=== PATIENT | female | born 1995 | race Asian ===

== ENCOUNTER 2020-04-04 12:06 | Outpatient (REF) | payer OTHER, SELFPAY | END 2020-04-04 12:07 | disposition home or self-care (01) | LOC: HO.LAB 12:06 | PROVIDERS: Visit Provider Internal Medicine | DX: Z20.822 Contact with and (suspected) exposure to COVID-19 (principal) | CPT/HCPCS: 36415; C9803; U0003; U0005 ==

== ENCOUNTER 2020-04-08 16:38 | Outpatient (REF) | payer OTHER, SELFPAY | END 2020-04-08 16:39 | disposition home or self-care (01) | LOC: HO.LAB 16:38 | PROVIDERS: Visit Provider Internal Medicine | DX: Z20.822 Contact with and (suspected) exposure to COVID-19 (principal) | CPT/HCPCS: 36415; C9803; U0003; U0005 ==

== ENCOUNTER 2020-04-10 07:10 | Outpatient (REF) | payer OTHER, SELFPAY | END 2020-04-10 07:11 | disposition home or self-care (01) | LOC: HO.LAB 07:10 | PROVIDERS: Visit Provider Internal Medicine | DX: Z20.822 Contact with and (suspected) exposure to COVID-19 (principal) | CPT/HCPCS: 36415; C9803; U0003; U0005 ==

== ENCOUNTER 2020-05-03 10:55 | Outpatient (REF) | payer OTHER, SELFPAY | END 2020-05-03 10:56 | disposition home or self-care (01) | LOC: HO.LAB 10:55 | PROVIDERS: Visit Provider Internal Medicine | DX: Z20.822 Contact with and (suspected) exposure to COVID-19 (principal) | CPT/HCPCS: 36415; C9803; U0003; U0005 ==

== ENCOUNTER 2020-07-18 14:15 | Outpatient (REF) | payer OTHER, SELFPAY ==
[2020-07-18 14:47] LABS: COVID-19 Test Negative (Negative)
== END 2020-07-18 14:16 | disposition home or self-care (01) ==
LOC: HO.LAB 14:15
PROVIDERS: Visit Provider Internal Medicine
DX: Z20.822 Contact with and (suspected) exposure to COVID-19 (principal)
CPT/HCPCS: 36415; 87635; C9803

== ENCOUNTER 2020-10-11 14:04 | Outpatient (REF) | payer OTHER, SELFPAY ==
[2020-10-11 15:15] LABS: COVID-19 Test Negative (Negative)
== END 2020-10-11 14:05 | disposition home or self-care (01) ==
LOC: HO.LAB 14:04
PROVIDERS: Visit Provider Internal Medicine
DX: Z20.822 Contact with and (suspected) exposure to COVID-19 (principal)
CPT/HCPCS: 36415; 87635; C9803

== ENCOUNTER 2021-06-20 03:17 | Emergency (ER) | payer OTHER, SELFPAY ==
[2021-06-20] VITALS (21 sets, daily range): BP systolic 98–140; BP diastolic 53–90; PULSE 57–97; RESP 14–20; TEMP 36.2–37.1; O2SAT 96–100; BMI 29.2
--- NOTE | ~2021-06-20 | CT_ITS ---
EXAMINATION: CT ABDOMEN AND PELVIS WITH CONTRAST CLINICAL INFORMATION: Epigastric pain radiating to the back COMPARISON: None TECHNIQUE: Multidetector volumetric images were obtained from the superior aspect of the liver through the pubic symphysis following administration 85 mL of Omnipaque 350 intravenous contrast. Sagittal and coronal reformatted images were obtained on the technologist's workstation. Oral contrast: No This CT examination was performed using dose optimization techniques as appropriate, variously including the following: *Automated exposure control *Adjustment of mA and/or kV according to patient size (this includes techniques or standardized protocols for targeted exams where dose is matched to indication/reason for exam; i.e. extremities or head) *Use of iterative reconstruction technique DLP: 703 mGy-cm FINDINGS: LUNG BASES: The visualized lung bases are unremarkable. LIVER, GALLBLADDER, AND BILIARY TREE: The liver is normal in size, shape, and attenuation. No focal hepatic lesion or biliary ductal dilatation is present. Somewhat distended gallbladder. No wall thickening seen. High attenuation seen in the region of the cystic duct, concerning for stones. This is seen on series 7 image 31. Normal caliber common bile duct. PANCREAS: Unremarkable. SPLEEN: Unremarkable. ADRENAL GLANDS: Unremarkable. KIDNEYS AND URETERS: The kidneys are normal in size, shape, and attenuation. No hydronephrosis, hydroureter, or calculi seen. No perinephric stranding. BLADDER: Unremarkable. GASTROINTESTINAL TRACT: The small and large bowel are unremarkable. The appendix is unremarkable. ABDOMINAL WALL: No significant hernia is appreciated. LYMPH NODES: Normal. VASCULAR: Unremarkable. PELVIC VISCERA: The uterus and adnexa are unremarkable. OSSEOUS STRUCTURES: Unremarkable. CT/CT abdomen pelvis w con IMPRESSION: Somewhat distended gallbladder. Suspect stones in the cystic duct. Consider correlation with ultrasound. Otherwise no acute finding in the abdomen or pelvis. Fleischner guidelines were followed.
--- NOTE | ~2021-06-20 | US_ITS ---
EXAMINATION: US ABDOMEN LIMITED CLINICAL INFORMATION: Right upper quadrant pain. COMPARISON: 06/20/2021 TECHNIQUE: Real-time imaging of the right upper quadrant abdominal viscera. FINDINGS: PANCREAS: Normal. LIVER: Normal. The liver is normal in size. The liver contour is normal. Parenchymal echogenicity is normal. No focal hepatic lesion. There is no intrahepatic biliary duct dilatation seen. GALLBLADDER: Patient is reportedly tender over the gallbladder. The gallbladder wall is mildly prominent 3.5 mm. No pericholecystic fluid. Ultrasound confirms the presence of a subtle tiny stone within the cystic duct. No choledocholithiasis. COMMON BILE DUCT: Normal in caliber measuring 0.4 cm in diameter. RIGHT KIDNEY: Normal. No hydronephrosis. No renal calculi or focal parenchymal lesions. The kidney measures 9.7 cm in maximum dimension. FREE FLUID: None. US/US abdomen limited IMPRESSION: Stone seen within the cystic duct. No choledocholithiasis. The gallbladder wall is minimally thickened which is nonspecific but may be indicative of early cholecystitis. Correlate clinically.
[2021-06-20 03:40] LABS: Appearance Urine CLEAR; Color Urine STRAW; Glucose Urine UA NEG (NEG); Leukocyte Esterase Urine NEG (NEG); Nitrite Urine NEG (NEG); PH 5.5 (5.0-8.0); Urine Blood NEG (NEG); Urine Ketones NEG (NEG); Urine Protein NEG (NEG-TRACE)
[2021-06-20 03:42] LABS: UPreg QC Valid YES; Urine Pregnancy NEGATIVE (NEGATIVE)
[2021-06-20 03:50] LABS: Bacteria Urine TRACE /LPF; RBC Urine 0 /HPF (0); Squamous Epithelial Cell Urine 2+ /LPF; WBC Urine 0-2 /HPF (0-4)
[2021-06-20 03:52] LABS: Amphetamine Screen Urine Not Detected (Not Detect); Barbiturates, Urine Not Detected (Not Detect); Benzodiazepines Screen Urine Not Detected (Not Detect); Cannabinoid Screen Urine Not Detected (Not Detect); Cocaine Screen Urine Not Detected (Not Detect); Fentanyl, urine Not Detected (Not Detect); Opiate Screen Urine Not Detected (Not Detect); Phencyclidine Screen Urine Not Detected (Not Detect)
[2021-06-20 03:55] LABS: MANUAL DIFF FLAG NO
[2021-06-20 03:56] LABS: Basophils Absolute Auto 0.1 X10*3/uL (0.0-0.2); Basophils Percent Auto 0.7 % (0-2); Eosinophils Absolute Auto 0.2 X10*3/uL (0.0-0.4); Eosinophils Percent Auto 1.6 % (0-4); Hematocrit 43.9 % (37.0-47.0); Hemoglobin 14.3 g/dl (12.0-16.0); Imm Gran Abs Auto 0.02 X10*3/uL (0.00-0.03); Imm Gran Pct Auto 0.2 % (0.0-0.4); Lymphocytes Absolute Auto 4.9 X10*3/uL (1.2-4.9); Mean Corpuscular HGB Conc 32.6 g/dl (31.0-35.0); Mean Corpuscular Hemoglobin 27.7 pg (27.0-33.0); Mean Corpuscular Volume 85.1 fL (80.0-98.0); Mean Platelet Volume 9.4 fL (9.4-12.3); Monocytes Absolute Auto 0.5 X10*3/uL (0.1-1.2); Monocytes Percent Auto 4.7 % (2-11); Neutrophils Percent Auto 46.8 % (45-73); Platelet Count 390 X10*3/uL (160-400); Red Blood Count 5.16 X10*6/uL (4.20-5.50); Red Cell Distribution Width 12.6 % (11.0-16.0); White Blood Count 10.6 X10*3/uL (4.8-10.8)
--- NOTE | 2021-06-20 04:21 | ED.ABDPAIN ---
HPI - Abdominal Pain General Chief Complaint: Abdominal Pain Stated Complaint: abdominal pain Time Seen by Provider: 06/20/21 04:10 Source: patient Mode of arrival: ambulatory Limitations: no limitations History of Present Illness HPI narrative: Patient comes to the emergency room complaining of severe epigastric pain radiating towards the back. Patient states that the pain started yesterday but throughout the night the pain became much worse. Patient denies vomiting or diarrhea, complaining of urinary frequency, no hematuria or dysuria. No fever chills Related Data Allergies Allergy/AdvReac Type Severity Reaction Status Date / Time procaine [From NOVOCAIN] Allergy Mild HIVES FROM Unverified 11/16/19 16:12 DENTAL NOVOCAIN amoxicillin [AMOXICILLIN] Allergy Unknown HIVES Unverified 11/16/19 16:12 Penicillins [PCN] Allergy Unknown HIVES Unverified 11/16/19 16:12 fish Allergy Unknown anaphylaxis Uncoded 08/30/19 00:00 novacaine Allergy Unknown hives Uncoded 08/30/19 00:00 SHELLFISH Allergy Unknown HIVES Uncoded 11/16/19 16:12 shellfish Allergy Unknown anaphylaxis Uncoded 08/30/19 00:00 Review of Systems Review of Systems Constitutional : No Weight loss, No Fever, No Chills, No Night Sweats, No Fatigue, No Malaise ENT/Mouth : No Hearing loss, No Ear Pain, No Nasal Congestion, No Sinus Pain, No Hoarseness, No sore throat, No Rhinorrhea, No Swallowing Difficulty Eyes: No Eye Pain, No Swelling, No Redness, No Foreign Body, No Discharge, No Vision Changes Cardiovascular : No Chest Pain, No SOB, No Dyspnea on Exertion, No Orthopnea, No Edema, No Palpitations Respiratory : No Cough, No Sputum, No Wheezing, No Smoke Exposure, No Dyspnea Gastrointestinal : Complaining of Nausea, No Vomiting, No Diarrhea, No Constipation, complaining of epigastric pain radiating towards the back, constant sharp pain 10/10 Genitourinary : no irregular bleeding, No Dysuria, No Urinary Frequency, No Hematuria, No Urinary Incontinence, No Urgency, No Flank Pain, No Urinary Flow Changes, No Hesitancy Musculoskeletal : No joint pain, No Myalgias, No Joint Swelling Skin : No Skin Lesions, No rash Neuro : No Weakness, No Numbness, No Paresthesias, No Loss of Consciousness, No Dizziness, No Headache Psych : No Anxiety/Panic, No Depression, No SI/HI/AH/VH, No Social Issues, Heme/Lymph: No Bruising, No Bleeding,No Lymphadenopathy Endocrine : No Polyuria, No Polydipsia, No Temperature Intolerance PMFSH Social History Social History Advance Directives: No Physical Exam ED Vital Signs: Vital Signs - 24 hr 06/20/21 03:19 06/20/21 03:54 06/20/21 05:31 Temperature 98.5 F 98.7 F Pulse Rate 82 82 74 Respiratory Rate 20 16 16 Blood Pressure 120/63 123/76 123/74 Pulse Oximetry 97 99 99 BMI result Body Mass Index 29.2 Const Other: Appearance: Alert. Oriented X3. Patient very agitated, throwing herself on the floor, getting up and walking around her bed, and throwing herself back in bed, screaming Eyes: Pupils equal, round and reactive to light. ENT: Pharynx normal. Neck: Normal inspection. Neck supple. No lymph nodes noted. No crepitus CVS: Normal heart rate and rhythm. Pulses normal. Normal S1 and S2 Respiratory: No respiratory distress. Breath sounds normal. No Wheezing. No rales Abdomen: Soft , tender to palpation in epigastric area Skin: Skin warm and dry. Normal skin color. Normal skin turgor. Extremities: No lower extremity edema. No Lacerations. No Rash Neuro: Oriented X 3. No motor deficit. No sensory deficit. Moving all extremities. No slurred speech. CN 2 through 12 grossly intact Psych: Very anxious, agitated, screaming, throwing herself on the ground, please see above Course Course Course Narrative: Patient's labs and imaging pending. Patient receiving IV Toradol and Zofran Overall, patient states that she is feeling much better, still having significant pain, but not as bad as when she initially arrived to the emergency room. 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 I discussed using IV contrast with Dr. Kolb from radiology. Nowadays, seafood allergy has no correlation with allergies to IV contrast. I discussed this with the patient. I discussed that we can either try doing the CT scan without contrast, but we may not get enough information, versus doing the IV contrast CT scan, and premedicating her. Patient states that she prefers to be premedicated and having the CT scan done with contrast. Patient is receiving IV diphenhydramine, famotidine, Solu-Medrol. Patient tolerated well the CT scan with contrast. CT scan shows somewhat distended gallbladder. Ultrasound has been ordered. please f/u ultrasound. Sign out given to Dr. Zambrano [facility] - Abdominal Pain Lab Data Result diagrams: 06/20/21 03:51 06/20/21 04:13 Labs: Lab Results 06/20/21 06/20/21 06/20/21 Range/Units 03:33 03:33 03:33 WBC (4.8-10.8) X10*3/uL RBC (4.20-5.50) X10*6/uL Hgb (12.0-16.0) g/dl Hct (37.0-47.0) % MCV (80.0-98.0) fL MCH (27.0-33.0) pg MCHC (31.0-35.0) g/dl RDW (11.0-16.0) % Plt Count (160-400) X10*3/uL MPV (9.4-12.3) fL Immature Gran % (Auto) (0.0-0.4) % Neut % (Auto) (45-73) % Lymph % (Auto) (20-40) % [place] % (Auto) (2-11) % Eos % (Auto) (0-4) % Baso % (Auto) (0-2) % Lymph # (Auto) (1.2-4.9) X10*3/uL [place] # (Auto) (0.1-1.2) X10*3/uL Eos # (Auto) (0.0-0.4) X10*3/uL Baso # (Auto) (0.0-0.2) X10*3/uL Abs Immat Gran (auto) (0.00-0.03) X10*3/uL Absolute Neuts (auto) (2.0-8.3) x10*3/uL Absolute Nucleated RBC (0.0-0.012) X10*3/uL Nucleated RBC % (auto) (0.0-0.2) /100WBC Sodium (135-145) mmol/L Potassium (3.3-5.1) mmol/L Chloride (96-108) mmol/L Carbon Dioxide (22-29) mmol/L Anion Gap (12-20) BUN (9-16) mg/dL Creatinine (0.5-1.4) mg/dL Estim Creat Clear Calc Estimated GFR Random Glucose (60-115) mg/dL Calcium (8.4-10.2) mg/dL Total Bilirubin (0.0-1.0) mg/dL AST (5-31) U/L ALT (0-31) U/L Alkaline Phosphatase (39-117) U/L Total Protein (6.5-8.0) g/dL Albumin (3.5-5.0) g/dL Urine Color STRAW Urine Appearance CLEAR Urine pH 5.5 (5.0-8.0) Ur Specific [place] 1.010 (1.005-1.025) Urine Protein NEG (NEG-TRACE) MG/DL Urine Glucose (UA) NEG (NEG) MG/DL Urine Ketones NEG (NEG) MG/DL Urine Blood NEG (NEG) Urine Nitrite NEG (NEG) Ur Leukocyte Esterase NEG (NEG) Urine RBC 0 (0) /HPF Urine WBC 0-2 (0-4) /HPF Ur Squamous Epith Cells 2+ /LPF Urine Bacteria TRACE /LPF Urine Test NEGATIVE (NEGATIVE) Urine Opiates Screen Not Detected (Not Detect) Urine Fentanyl Screen Not Detected (Not Detect) Ur Barbiturates Screen Not Detected (Not Detect) Ur Phencyclidine Scrn Not Detected (Not Detect) Ur Amphetamines Screen Not Detected (Not Detect) U Benzodiazepines Scrn Not Detected (Not Detect) Urine Cocaine Screen Not Detected (Not Detect) U Marijuana (THC) Screen Not Detected (Not Detect) 06/20/21 06/20/21 Range/Units 03:51 04:13 WBC 10.6 (4.8-10.8) X10*3/uL RBC 5.16 (4.20-5.50) X10*6/uL Hgb 14.3 (12.0-16.0) g/dl Hct 43.9 (37.0-47.0) % MCV 85.1 (80.0-98.0) fL MCH 27.7 (27.0-33.0) pg MCHC 32.6 (31.0-35.0) g/dl RDW 12.6 (11.0-16.0) % Plt Count 390 (160-400) X10*3/uL MPV 9.4 (9.4-12.3) fL Immature Gran % (Auto) 0.2 (0.0-0.4) % Neut % (Auto) 46.8 (45-73) % Lymph % (Auto) 46.0 H (20-40) % [place] % (Auto) 4.7 (2-11) % Eos % (Auto) 1.6 (0-4) % Baso % (Auto) 0.7 (0-2) % Lymph # (Auto) 4.9 (1.2-4.9) X10*3/uL [place] # (Auto) 0.5 (0.1-1.2) X10*3/uL Eos # (Auto) 0.2 (0.0-0.4) X10*3/uL Baso # (Auto) 0.1 (0.0-0.2) X10*3/uL Abs Immat Gran (auto) 0.02 (0.00-0.03) X10*3/uL Absolute Neuts (auto) 5.0 (2.0-8.3) x10*3/uL Absolute Nucleated RBC 0.000 (0.0-0.012) X10*3/uL Nucleated RBC % (auto) 0.0 (0.0-0.2) /100WBC Sodium 138 (135-145) mmol/L Potassium 4.3 (3.3-5.1) mmol/L Chloride 107 (96-108) mmol/L Carbon Dioxide 22 (22-29) mmol/L Anion Gap 13 (12-20) BUN 10 (9-16) mg/dL Creatinine 0.70 (0.5-1.4) mg/dL Estim Creat Clear Calc 111.6 Estimated GFR > 60 Random Glucose 115 (60-115) mg/dL Calcium 10.7 H (8.4-10.2) mg/dL Total Bilirubin 0.4 (0.0-1.0) mg/dL AST 15 (5-31) U/L ALT 14 (0-31) U/L Alkaline Phosphatase 76 (39-117) U/L Total Protein 7.3 (6.5-8.0) g/dL Albumin 4.0 (3.5-5.0) g/dL Urine Color Urine Appearance Urine pH (5.0-8.0) Ur Specific [place] (1.005-1.025) Urine Protein (NEG-TRACE) MG/DL Urine Glucose (UA) (NEG) MG/DL Urine Ketones (NEG) MG/DL Urine Blood (NEG) Urine Nitrite (NEG) Ur Leukocyte Esterase (NEG) Urine RBC (0) /HPF Urine WBC (0-4) /HPF Ur Squamous Epith Cells /LPF Urine Bacteria /LPF Urine Test (NEGATIVE) Urine Opiates Screen (Not Detect) Urine Fentanyl Screen (Not Detect) Ur Barbiturates Screen (Not Detect) Ur Phencyclidine Scrn (Not Detect) Ur Amphetamines Screen (Not Detect) U Benzodiazepines Scrn (Not Detect) Urine Cocaine Screen (Not Detect) U Marijuana (THC) Screen (Not Detect) Imaging Data CT scan - abdomen: Radiologist's impression: INDINGS: LUNG BASES: The visualized lung bases are unremarkable.? LIVER, GALLBLADDER, AND BILIARY TREE: The liver is normal in size, shape, and attenuation. No focal hepatic lesion or biliary ductal dilatation is present. Somewhat distended gallbladder. No wall thickening seen. High attenuation seen in the region of the cystic duct, concerning for stones. This is seen on series 7 image 31. Normal caliber common bile duct.? PANCREAS: Unremarkable.? SPLEEN: Unremarkable.? ADRENAL GLANDS: Unremarkable.? KIDNEYS AND URETERS: The kidneys are normal in size, shape, and attenuation. No hydronephrosis, hydroureter, or calculi seen. No perinephric stranding. ? BLADDER: Unremarkable.? GASTROINTESTINAL TRACT: The small and large bowel are unremarkable. The appendix is unremarkable.? ABDOMINAL WALL: No significant hernia is appreciated.? LYMPH NODES: Normal. VASCULAR: Unremarkable. PELVIC VISCERA: The uterus and adnexa are unremarkable.? OSSEOUS STRUCTURES: Unremarkable.? CT/CT abdomen pelvis w con IMPRESSION: Somewhat distended gallbladder. Suspect stones in the cystic duct. Consider correlation with ultrasound. Otherwise no acute finding in the abdomen or pelvis.? ? Fleischner guidelines were followed. Discharge Plan Discharge Clinical Impression: Abdominal pain Patient Disposition: Still a Patient
[2021-06-20] MEDS: Ketorolac Tromethamine 30 MG/ML VIAL IVPUSH (04:32)
[2021-06-20] MEDS: ondansetron HCL 4 MG/2 ML VIAL IVPUSH ×2 (04:33→14:15)
[2021-06-20 04:40] LABS: Alanine Aminotransferase 14 U/L (0-31); Alkaline Phosphatase 76 U/L (39-117); Anion Gap 13 (12-20); Aspartate Amino Transferase 15 U/L (5-31); Bilirubin Total 0.4 mg/dL (0.0-1.0); Blood Urea Nitrogen 10 mg/dL (9-16); Calcium 10.7 mg/dL (8.4-10.2); Carbon Dioxide 22 mmol/L (22-29); Chloride 107 mmol/L (96-108); Creatinine Clr Calc Pharmacy 111.6; Estimated Glomerular Filt Rate > 60; Glucose Random 115 mg/dL (60-115); Potassium 4.3 mmol/L (3.3-5.1); Sodium 138 mmol/L (135-145); Total Protein 7.3 g/dL (6.5-8.0)
[2021-06-20] MEDS: Famotidine/PF 20 MG/2 ML VIAL IVPUSH (05:01)
[2021-06-20] MEDS: diphenhydrAMINE HCL 50 MG/ML VIAL IVPUSH (05:01)
[2021-06-20] MEDS: methylPREDNISolone Sod Succ 125 MG/2 ML VIAL IVPUSH (05:01)
[2021-06-20] MEDS: iohexoL 350 MG/ML 100 ML INFUS..BTL 85 ML IV (05:16)
--- NOTE | 2021-06-20 07:25 | PC.NURSE ---
care assumed for patient at this time. pt resting in bed comfortably no obvious distress. plan for ultrasound this am.
[2021-06-20 09:16] LABS: Lipase 16 U/L (8-78)
--- NOTE | 2021-06-20 09:37 | PC.NURSE ---
plan for pt to talk to surgery
--- NOTE | 2021-06-20 10:02 | P.HPGS_ITS ---
History of Present Illness History of Present Illness Date of Service: 06/20/21 <Claribel Drew PA-C - Last Filed: 06/20/21 10:17> 06/20/21 <Gallo Tellez MD - Last Filed: 06/20/21 14:11> Chief complaint: abdominal pain <Claribel Drew PA-C - Last Filed: 06/20/21 10:17> Narrative: Sanna Hernandez is a 26 year old healthy female who presented to the ED with complaints of upper abdominal pain. The pain began yesterday afternoon after eating but worsened throughout the night. The pain is located in the epigastric/RUQ area and radiates to the back. She reports having frequent episodes about an hour following meals for the past 3-4 weeks. They usually go away on their own however this current episode was severe and persisted. She reports nausea and chills with this episode. She denies fever, vomiting, changes in skin color, urine, bowel habits. Work up in the ED included CT scan abd/pelvis and ABD US which showed gallstones, a distended gallbladder with a stone at the neck. CBC, BMP, LFTs WNL. She received toradol in the ED and feels much better but is scared to go home and have the pain recur with eating. <Claribel Drew PA-C - Last Filed: 06/20/21 10:17> Review of Systems Constitutional: Constitutional: Reports chills, Denies fever(s), Denies malaise and Denies weight loss <Claribel Drew PA-C - Last Filed: 06/20/21 10:17> ENT: Denies dizziness <Claribel Drew PA-C - Last Filed: 06/20/21 10:17> Cardiovascular: Cardiovascular: Denies chest pain <SUYAPA Li Last Filed: 06/20/21 10:17> Respiratory: Respiratory: Denies cough <RACHEL Li Last Filed: 06/20/21 10:17> Gastrointestinal: Gastrointestinal: Reports as per HPI, Denies change in bowel habits, Reports nausea and Denies vomiting <RACHEL Li Last Filed: 06/20/21 10:17> Genitourinary: Genitourinary: Denies dysuria <RACHEL Li Last Filed: 06/20/21 10:17> Neurologic: Denies dizziness <RACHEL Li Last Filed: 06/20/21 10:17> PMFSH Past Medical History Medical History: Medical History Asthma <RACHEL Li Last Filed: 06/20/21 10:17> Surgical History Surgical History: Surgical History Hx of wisdom tooth extraction <RACHEL Li Last Filed: 06/20/21 10:17> Social History Social History: Social History Patient Tobacco Use Status: Never used Tobacco Use of substances other than those prescribed or required for medical reasons: No Are you DNR?: No Advance Directives: No <RACHEL Li Last Filed: 06/20/21 10:17> Meds Allergies/Adverse reactions: Allergies Allergy/AdvReac Type Severity Reaction Status Date / Time procaine [From NOVOCAIN] Allergy Mild HIVES FROM Verified 06/20/21 12:10 DENTAL NOVOCAIN amoxicillin [AMOXICILLIN] Allergy Unknown HIVES Verified 06/20/21 12:10 Penicillins [PCN] Allergy Unknown HIVES Verified 06/20/21 12:10 fish Allergy Unknown anaphylaxis Uncoded 08/30/19 00:00 novacaine Allergy Unknown hives Uncoded 08/30/19 00:00 SHELLFISH Allergy Unknown HIVES Uncoded 11/16/19 16:12 shellfish Allergy Unknown anaphylaxis Uncoded 08/30/19 00:00 <RACHEL Li Last Filed: 06/20/21 10:17> Active Medications: Current Medications Cefotetan Disodium 2 gm/ (Sodium Chloride) 50 mls @ 100 mls/hr IV PREOP ONE Stop: 06/20/21 10:28 <RACHEL Li Last Filed: 06/20/21 10:17> Home medications: Home Medications Medication Instructions Recorded Confirmed Last Taken Type albuterol sulfate 90 mcg/actuation 2 puff INHALATION Q4-6H PRN 06/20/21 06/20/21 Unknown History aerosol inhaler (ProAir HFA) <RACHEL Li Last Filed: 06/20/21 10:17> Physical Exam Vital Signs: Vital Signs: Last Vital Signs Temp 98.7 F 06/20/21 07:56 Pulse 77 06/20/21 07:56 Resp 14 06/20/21 07:56 BP 102/68 06/20/21 07:56 Pulse Ox 100 06/20/21 07:56 BMI result Body Mass Index 29.2 <Claribel Drew PA-C Last Filed: 06/20/21 10:17> Const: General: comfortable, no acute distress and alert <Claribel Drew PA-C Last Filed: 06/20/21 10:17> Orientation/consciousness: patient oriented x3 <Claribel Drew PA-C Last Filed: 06/20/21 10:17> Resp: Effort & Inspection: normal respiratory effort <RACHEL Li Last Filed: 06/20/21 10:17> Cardio: Rate: regular rate <Claribel Drew PA-C Last Filed: 06/20/21 10:17> GI: Inspection: No distended <RACHEL Li Last Filed: 06/20/21 10:17> Palpation (GI): Soft to palpation, Tenderness to palpation present (GI) in the RUQ (mild to deep); Negative for Bruno's sign negative, no guarding and not rigid <RACHEL Li Last Filed: 06/20/21 10:17> Percussion: Yes normal to percussion <Claribel Drew PA-C Last Filed: 06/20/21 10:17> Skin: General skin exam: no rashes or lesions noted <RACHEL Li Last Filed: 06/20/21 10:17> Neuro: General: patient oriented x3 <RACHEL Li Last Filed: 06/20/21 10:17> Extrem: General: Yes no clubbing, cyanosis or edema <Claribel Drew PA-C - Last Filed: 06/20/21 10:17> Results Results Labs: Short CBC 06/20/21 Range/Units 03:51 WBC 10.6 (4.8-10.8) X10*3/uL Hgb 14.3 (12.0-16.0) g/dl Hct 43.9 (37.0-47.0) % Plt Count 390 (160-400) X10*3/uL BMP 06/20/21 04:13 Sodium 138 Potassium 4.3 Chloride 107 Carbon Dioxide 22 BUN 10 Creatinine 0.70 Calcium 10.7 H Liver Function 06/20/21 Range/Units 04:13 Total Bilirubin 0.4 (0.0-1.0) mg/dL AST 15 (5-31) U/L ALT 14 (0-31) U/L Alkaline Phosphatase 76 (39-117) U/L Albumin 4.0 (3.5-5.0) g/dL Urine 06/20/21 06/20/21 Range/Units 03:33 03:33 Urine Color STRAW Urine Appearance CLEAR Urine pH 5.5 (5.0-8.0) Ur Specific [place] 1.010 (1.005-1.025) Urine Protein NEG (NEG-TRACE) MG/DL Urine Glucose (UA) NEG (NEG) MG/DL Urine Test NEGATIVE (NEGATIVE) <RACHEL Li Last Filed: 06/20/21 10:17> Assessment and Plan (1) Biliary colic: Status: Acute <Claribel Drew PA-C - Last Filed: 06/20/21 10:17> Plan 26 year old female with episodic RUQ pain after eating for the past 3-4 weeks with imaging showing gallstones, a distended gallbladder with a stone at the neck. Clinical picture consistent with biliary colic. Treatment options were discussed with the patient including discharge to home on low fat diet and f/u in office for elective cholecystectomy versus proceeding with laparoscopic cholecystectomy possible open while she is here. She is scared to have the pain recur while she is home and wants to proceed with the surgery while she is here. She will be added onto the OR schedule for later today and if she does well, possible discharge to home following. Discussed with patient and mother. NPO, IVF for now. Patient seen with Dr. Tellez. <Claribel Drew PA-C - Last Filed: 06/20/21 10:17> Quality Stroke Does the patient have a stroke diagnosis?: No <Claribel Drew PA-C - Last Filed: 06/20/21 10:17> VTE Prior VTE?: No <Claribel Drew PA-C - Last Filed: 06/20/21 10:17> VTE Risk Level:: Surgical - low <Claribel Drew PA-C - Last Filed: 06/20/21 10:17> VTE Device Contraindication: N/A - Device Ordered <Claribel Drew PA-C - Last Filed: 06/20/21 10:17> VTE Drug Contraindication: Treatment Not Indicated <Claribel Drew PA-C - Last Filed: 06/20/21 10:17> Procedures Date of Service Date of Service: 06/20/21 <Claribel Drew PA-C - Last Filed: 06/20/21 10:17>
--- NOTE | 2021-06-20 10:14 | P.HPGS_ITS ---
History of Present Illness History of Present Illness Date of Service: 06/20/21 Chief complaint: abdominal pain Narrative: Sanna Hernandez is a 26 year old female presenting with complaints of abdominal pain in the right upper quadrant associated with nausea, vomiting, and chills. She has had episodes of similar pain over the last several weeks usually several hours after eating. The current episode lasted longer and was more severe than the previous episodes. She subsequently presented to the emergency department was noted to be tender in the right upper quadrant with a positive Bruno sign. Workup with CT and ultrasound revealed a gallstone wedged at the the gallbladder. Laboratories revealed normal WBC and normal liver function tests. Patient received Toradol and reports decreased abdominal pain. Review of Systems Constitutional: Constitutional: Reports chills, Denies fever(s), Denies headache(s) and Denies poor appetite ENT: Denies dizziness and Denies headache(s) Cardiovascular: Cardiovascular: Denies chest pain, Denies rapid heart rate, Denies palpitations and Denies slow heart rate Respiratory: Respiratory: Denies chest congestion, Denies cough, Denies pain on inspiration and Denies wheezing Gastrointestinal: Gastrointestinal: Reports abdominal pain, Denies bloating, Denies change in stool character, Denies constipation, Reports nausea, Reports vomiting and Denies hematemesis Musculoskeletal: Musculoskeletal: Denies back pain, Denies arthralgias, Denies joint swelling and Denies numbness Integumentary/Breasts: Skin/Breast: Denies change in pigmentation, Denies erythema and Denies rash Neurologic: Denies dizziness, Denies headache(s) and Denies numbness Psychiatric: Psychiatric: Denies anxiety and Denies depression Endocrine: Endocrine: Denies palpitations Hematologic/Lymphatic: Hematologic/Lymphatic: Denies easy bleeding, Denies easy bruising and Denies lymphadenopathy Allergic/Immunologic: Allergic/Immunologic: Denies wheezing PMFSH Social History Social History Advance Directives: No Meds Allergies Allergy/AdvReac Type Severity Reaction Status Date / Time procaine [From NOVOCAIN] Allergy Mild HIVES FROM Unverified 11/16/19 16:12 DENTAL NOVOCAIN amoxicillin [AMOXICILLIN] Allergy Unknown HIVES Unverified 11/16/19 16:12 Penicillins [PCN] Allergy Unknown HIVES Unverified 11/16/19 16:12 fish Allergy Unknown anaphylaxis Uncoded 08/30/19 00:00 novacaine Allergy Unknown hives Uncoded 08/30/19 00:00 SHELLFISH Allergy Unknown HIVES Uncoded 11/16/19 16:12 shellfish Allergy Unknown anaphylaxis Uncoded 08/30/19 00:00 Active Medications: Current Medications Cefotetan Disodium 2 gm/ (Sodium Chloride) 50 mls @ 100 mls/hr IV PREOP ONE Stop: 06/20/21 10:28 Physical Exam Vital Signs: Vital Signs: Last Vital Signs Temp 98.7 F 06/20/21 07:56 Pulse 77 06/20/21 07:56 Resp 14 06/20/21 07:56 BP 102/68 06/20/21 07:56 Pulse Ox 100 06/20/21 07:56 BMI result Body Mass Index 29.2 Const: General: cooperative, comfortable and well developed Nutritional Appearance: well nourished Orientation/consciousness: patient oriented x3 Eyes: Sclerae: sclerae normal EOM: EOMs intact bilaterally Neck: Neck: Yes normal visual inspection Resp: Effort & Inspection: normal respiratory effort, no cough, no respiratory distress and no stridor Cardio: Jugular venous distension: no JVD GI: Inspection: Yes normal to inspection Palpation (GI): Soft to palpation, Tenderness to palpation present (GI) in the RUQ; Negative for Bruno's sign negative, no guarding and not rigid Percussion: Yes normal to percussion Auscultation: normal bowel sounds Skin: General skin exam: dry skin Rashes: no rashes Neuro: General: patient oriented x3 and no focal motor deficits Extrem: General: Yes full ROM and Yes no clubbing, cyanosis or edema Psych: Appearance: grossly normal Results Results Labs: Short CBC 06/20/21 Range/Units 03:51 WBC 10.6 (4.8-10.8) X10*3/uL Hgb 14.3 (12.0-16.0) g/dl Hct 43.9 (37.0-47.0) % Plt Count 390 (160-400) X10*3/uL BMP 06/20/21 04:13 Sodium 138 Potassium 4.3 Chloride 107 Carbon Dioxide 22 BUN 10 Creatinine 0.70 Calcium 10.7 H Liver Function 06/20/21 Range/Units 04:13 Total Bilirubin 0.4 (0.0-1.0) mg/dL AST 15 (5-31) U/L ALT 14 (0-31) U/L Alkaline Phosphatase 76 (39-117) U/L Albumin 4.0 (3.5-5.0) g/dL Urine 06/20/21 06/20/21 Range/Units 03:33 03:33 Urine Color STRAW Urine Appearance CLEAR Urine pH 5.5 (5.0-8.0) Ur Specific [place] 1.010 (1.005-1.025) Urine Protein NEG (NEG-TRACE) MG/DL Urine Glucose (UA) NEG (NEG) MG/DL Urine Test NEGATIVE (NEGATIVE) Assessment and Plan (1) Biliary colic: Status: Acute Plan 26-year-old female patient presenting with multiple episodes of abdominal pain in the right upper quadrant found to have a gallstone wedged in the neck of the gallbladder suggestive of acute cholecystitis, biliary colic. The pain is now improved after receiving Toradol. Patient is concerned about the severity of her pain and wishes to proceed with laparoscopic or possible open cholecystectomy. After discussion of the procedure, risks, and alternatives, she consents to a laparoscopic or possible open cholecystectomy. She will be added onto the operative schedule for today. Quality Stroke Does the patient have a stroke diagnosis?: No VTE Prior VTE?: No VTE Risk Level:: Surgical - moderate VTE Device Contraindication: N/A - Device Ordered VTE Drug Contraindication: Treatment Not Indicated Procedures Date of Service Date of Service: 06/20/21
--- NOTE | 2021-06-20 10:29 | PHA.MEDREC ---
Pharmacy Consult ? Medication Reconciliation Pharmacy has completed the medication reconciliation. Spoke with patient in the ED. Patient is only using an albuterol inhaler prn and is not on any OTC meds
[2021-06-20 10:54] LABS: COVID-19 Test Negative (Negative)
[2021-06-20] MEDS: Lactated Ringers 1,000 ML 80 ML IVCONT (11:07)
--- NOTE | 2021-06-20 11:57 | HO.ANESPROP2 ---
[facility] Active Problems Active Problems: All Active Problems (Updated 06/20/21 @ 10:12 by Claribel Drew PA-C) Biliary colic (Acute) Abdominal pain (Acute) Past Medical History Medical History Asthma Surgical History Surgical History Hx of wisdom tooth extraction History of Problems with Anesthesia: No Social History Social History Advance Directives: No Meds Allergies Allergy/AdvReac Type Severity Reaction Status Date / Time procaine [From NOVOCAIN] Allergy Mild HIVES FROM Verified 06/20/21 12:10 DENTAL NOVOCAIN amoxicillin [AMOXICILLIN] Allergy Unknown HIVES Verified 06/20/21 12:10 Penicillins [PCN] Allergy Unknown HIVES Verified 06/20/21 12:10 fish Allergy Unknown anaphylaxis Uncoded 08/30/19 00:00 novacaine Allergy Unknown hives Uncoded 08/30/19 00:00 SHELLFISH Allergy Unknown HIVES Uncoded 11/16/19 16:12 shellfish Allergy Unknown anaphylaxis Uncoded 08/30/19 00:00 Active Medications: Current Medications Lactated Ringer's (Lr) 1,000 mls @ 80 mls/hr IVCONT .[id number] DION Last Admin: 06/20/21 11:07 Dose: 80 mls/hr Documented by: Pharmacy Consult (Consult Rx Perform Med Rec) 1 each MISCELLANE ONCE PRN PRN Reason: Consult order Home Medications Medication Instructions Recorded Confirmed Last Taken Type albuterol sulfate 90 mcg/actuation 2 puff INHALATION Q4-6H PRN 06/20/21 06/20/21 Unknown History aerosol inhaler (ProAir HFA) Exam Exam Date and Time: June 20, 2021 1157 Height,Weight and Vital Signs: Height 5 ft 2 in Weight 72.575 kg Last Vital Signs Temp 98.7 F 06/20/21 11:24 Pulse 69 06/20/21 11:24 Resp 14 06/20/21 11:24 BP 110/55 L 06/20/21 11:24 Pulse Ox 99 06/20/21 11:24 Pertinent Lab Results Pertinent Lab Results: Laboratory Tests 06/20/21 06/20/21 06/20/21 03:33 03:33 03:33 WBC RBC Hgb Hct MCV MCH MCHC RDW Plt Count MPV Immature Gran % (Auto) Neut % (Auto) Lymph % (Auto) [place] % (Auto) Eos % (Auto) Baso % (Auto) Lymph # (Auto) [place] # (Auto) Eos # (Auto) Baso # (Auto) Abs Immat Gran (auto) Absolute Neuts (auto) Absolute Nucleated RBC Nucleated RBC % (auto) Sodium Potassium Chloride Carbon Dioxide Anion Gap BUN Creatinine Estim Creat Clear Calc Estimated GFR Random Glucose Calcium Total Bilirubin AST ALT Alkaline Phosphatase Total Protein Albumin Lipase Urine Color STRAW Urine Appearance CLEAR Urine pH 5.5 Ur Specific [place] 1.010 Urine Protein NEG Urine Glucose (UA) NEG Urine Ketones NEG Urine Blood NEG Urine Nitrite NEG Ur Leukocyte Esterase NEG Urine RBC 0 Urine WBC 0-2 Ur Squamous Epith Cells 2+ Urine Bacteria TRACE Urine Test NEGATIVE Urine Opiates Screen Not Detected Urine Fentanyl Screen Not Detected Ur Barbiturates Screen Not Detected Ur Phencyclidine Scrn Not Detected Ur Amphetamines Screen Not Detected U Benzodiazepines Scrn Not Detected Urine Cocaine Screen Not Detected U Marijuana (THC) Screen Not Detected COVID-19 (KATT) COVID-19 Clin Com 06/20/21 06/20/21 06/20/21 03:51 04:13 10:29 WBC 10.6 RBC 5.16 Hgb 14.3 Hct 43.9 MCV 85.1 MCH 27.7 MCHC 32.6 RDW 12.6 Plt Count 390 MPV 9.4 Immature Gran % (Auto) 0.2 Neut % (Auto) 46.8 Lymph % (Auto) 46.0 H [place] % (Auto) 4.7 Eos % (Auto) 1.6 Baso % (Auto) 0.7 Lymph # (Auto) 4.9 [place] # (Auto) 0.5 Eos # (Auto) 0.2 Baso # (Auto) 0.1 Abs Immat Gran (auto) 0.02 Absolute Neuts (auto) 5.0 Absolute Nucleated RBC 0.000 Nucleated RBC % (auto) 0.0 Sodium 138 Potassium 4.3 Chloride 107 Carbon Dioxide 22 Anion Gap 13 BUN 10 Creatinine 0.70 Estim Creat Clear Calc 111.6 Estimated GFR > 60 Random Glucose 115 Calcium 10.7 H Total Bilirubin 0.4 AST 15 ALT 14 Alkaline Phosphatase 76 Total Protein 7.3 Albumin 4.0 Lipase 16 Urine Color Urine Appearance Urine pH Ur Specific [place] Urine Protein Urine Glucose (UA) Urine Ketones Urine Blood Urine Nitrite Ur Leukocyte Esterase Urine RBC Urine WBC Ur Squamous Epith Cells Urine Bacteria Urine Test Urine Opiates Screen Urine Fentanyl Screen Ur Barbiturates Screen Ur Phencyclidine Scrn Ur Amphetamines Screen U Benzodiazepines Scrn Urine Cocaine Screen U Marijuana (THC) Screen COVID-19 (KATT) Negative COVID-19 Clin Com See Note Airway Mallampati Class: II TM Dist: >3cm Neck ROM: Full Loose/Missing/Broken Teeth: No Heart: RRR Lungs: CTA Assessment and Plan Assessment Anesthesia Assessment: Anesthesia Plan Discussed and Chart Reviewed Final Anesthetic Review History of Problems with Anesthesia: No NPO: Yes ASA Class: II and Emergency Final Preanesthetic Review: Meds/Allgs Chart Reviewed, Consent Obtained/Reviewed and Anes Risks/Benef Reviewed Patient Risk: Low Procedure Risk: Low Anesthetic Plan Anesthetic Plan: GA Disposition: Standard PACU
--- NOTE | 2021-06-20 12:23 | PC.NURSE ---
Patient arrived to [facility] from ED wearing many pieces of jewelry. Rings x4, Nose piercings x1 , Necklaces x2, and Bracelets x3 removed. All of these items places in blue labeled specimen cup. Patient unable to remove nipple piercings x2 and nose piercing x1. Surgical team made aware.
--- NOTE | 2021-06-20 13:21 | PM.OP ---
Brief Operative Note Date of Service: 06/20/21 <Claribel Drew PA-C - Last Filed: 06/20/21 13:24> Pre-op diagnosis: biliary colic <Claribel Drew PA-C - Last Filed: 06/20/21 13:24> Post-op diagnosis: same (acute cholecystitis ) <Claribel Drew PA-C - Last Filed: 06/20/21 13:24> Procedure: laparoscopic cholecystectomy <Claribel Drew PA-C - Last Filed: 06/20/21 13:24> Surgeon: GALLO TELLEZ MD <Claribel Drew PA-C - Last Filed: 06/20/21 13:24> Anesthesia: GETA <Claribel Drew PA-C - Last Filed: 06/20/21 13:24> Was an Final Assembly And Packing Supervisor used for this Procedure?: Yes <Claribel Drew PA-C - Last Filed: 06/20/21 13:24> No <Gallo Tellez MD - Last Filed: 06/20/21 14:12> Final Assembly And Packing Supervisor: Claribel Drew <Claribel Drew PA-C - Last Filed: 06/20/21 13:24> Estimated blood loss (mL): 10 <RACHEL Li Last Filed: 06/20/21 13:24> Pathology: other (GALLBLADDER) <RACHEL Li Last Filed: 06/20/21 13:24> Condition: stable <RACHEL Li Last Filed: 06/20/21 13:24> Disposition: PACU <RACHEL Li Last Filed: 06/20/21 13:24>
[2021-06-20] MEDS: fentaNYL citrate/PF 100 MCG/2 ML VIAL 25 MCG IVPUSH (13:42)
[2021-06-20] MEDS: oxyCODONE HCl Immed Release 5 MG TABLET 10 MG PO (13:47)
[2021-06-20] MEDS: fentaNYL citrate/PF 100 MCG/2 ML VIAL 50 MCG IVPUSH (13:51)
--- NOTE | 2021-06-20 14:12 | W.PM.OPN ---
Operative Note Operative Note Date of Service: 06/20/21 Narrative: Preoperative diagnosis: Acute cholecystitis, biliary colic Postoperative diagnosis: Same Procedure: Laparoscopic cholecystectomy Surgeon: Gallo Tellez MD Automatic Beading Lathe Operator: Claribel Drew PA-C Anesthesia: General endotracheal Indications for procedure: 26-year-old female patient presenting with complaints of abdominal pain in the right upper quadrant associated with fatty food intake. The pain radiates to the back on the right side. She has had several episodes of this pain usually associated with dietary intake. Workup today in the emergency department revealed gallstones within the gallbladder located at the neck Operative findings: Acutely inflamed gallbladder with gallstone at the neck. Specimen: Gallbladder Estimated blood loss: 2 mL Complications: None Procedure details: Patient was brought to the OR placed in a supine position. After administering general anesthesia the patient's abdomen was prepped with ChloraPrep and draped in a sterile fashion. A surgical time-out was called and the consent confirmed. Patient received preoperative antibiotics and Venodyne boots were in place. Local anesthesia consisting of 0.25% Sensorcaine was infiltrated around the umbilicus. Incision was then made in a longitudinal fashion carried out through subcutaneous tissue. A Veress needle was then inserted while elevating the abdominal cavity with towel clips. After a positive drop test the abdomen was insufflated to a pressure of 15 mmHg. Veress needle was removed and a 5 mm trocar placed under direct vision. A 12 mm trocar was then placed in the epigastrium and 2 5 mm trocars placed in the right upper quadrant. The patient was placed in a reverse Trendelenburg position rotated to the left. Gallbladder was then grasped at the fundus and retracted cephalad. The infundibulum was then grasped and retracted away from the liver bed. Peritoneum was then taken down off the infundibulum to revealed the junction with the cystic duct. A large node of Calot was noted over the cystic artery. This was dissected down off the cystic artery. After obtaining a critical view the cystic duct and cystic artery were doubly clipped and divided. A 2nd branch of the cystic artery was identified to the right of the cystic duct. This was also doubly clipped and divided. The gallbladder was then dissected off the liver bed using electrocautery. The gallbladder was placed into an Endo-Catch bag and brought out through the epigastric incision. This was then passed off the table and sent to pathology for further examination. Wounds were checked for hemostasis. Liver bed was irrigated and suctioned dry. No bleeding or bile leak could be identified. Trocars were all removed and CO2 evacuated. Fascia was closed using [id number] 0 Polysorb suture. Skin was then closed using a running subcuticular 4-0 Polysorb suture. The patient tolerated the procedure well. Sponge, instrument, and needle counts reported as correct. The patient was transferred to PACU in stable condition.
--- NOTE | 2021-06-26 10:42 | P.DS_ITS ---
DS: Providers Provider Date of Service: 06/20/21 Primary care physician: Yari Physician Attending physician on admission: Gallo Tellez DS: Diagnosis Discharge Diagnosis (1) Biliary colic: Status: Acute DS: Summary Hospital Course Hospital Course: BRIEF HPI: Sanna Hernandez is a 26 year old healthy female who presented to the ED with complaints of upper abdominal pain. The pain began yesterday afternoon after eating but worsened throughout the night. The pain is located in the epigastric/RUQ area and radiates to the back. She reports having frequent episodes about an hour following meals for the past 3-4 weeks. They usually go away on their own however this current episode was severe and persisted. She reports nausea and chills with this episode. She denies fever, vomiting, changes in skin color, urine, bowel habits. Work up in the ED included CT scan abd/pelvis and ABD US which showed gallstones, a distended gallbladder with a stone at the neck. CBC, BMP, LFTs WNL. She received toradol in the ED and feels much better but is scared to go home and have the pain recur with eating. HOSPITAL COURSE: 26-year-old female patient presenting with multiple episodes of abdominal pain in the right upper quadrant found to have a gallstone wedged in the neck of the gallbladder suggestive of acute cholecystitis, biliary colic.? The pain improved after receiving Toradol.? Patient is concerned about the severity of her pain and wishes to proceed with laparoscopic or possible open ch olecystectomy.? After discussion of the procedure, risks, and alternatives, she consented to a laparoscopic or possible open cholecystectomy.? She was added onto the operative schedule for that day. On 06/20/21, a laparoscopic cholecystectomy was performed by Dr. Tellez without complication. The patient tolerated the procedure well. Following routine recovery in PACU, she felt well, was tolerating a solid diet and had adequate pain control. She was discharged to home on 06/20/21 in stable condition. She is to follow up with Dr. Tellez in 1 week in office. Status at Discharge Functional status at discharge: independent ambulation Time Spent with Patient Time attestation: Total time spent providing and/or coordinating discharge services: Discharge coordination time: Less than 30 minutes Quality: Safe Use of Opioids Does Pt have an Active Cancer Diagnosis on the Problem List?: No Quality: Stroke Does the patient have a stroke diagnosis?: No Physical Exam Vital Signs: Vital Signs: Last Vital Signs Temp 97.6 F 06/20/21 15:30 Pulse 65 06/20/21 15:30 Resp 16 06/20/21 15:30 BP 100/60 06/20/21 15:30 Pulse Ox 96 06/20/21 15:30 BMI result Body Mass Index 29.2 DS: Data Data Completed and Pending Completed studies during hospitalization [Text1]: 06/20/21 13:05 Surgical [PTH] Routine Gallbladder, cholecystectomy:? Subacute on chronic cholecystitis with cholesterolosis and cholelithiasis. Discharge Plan Discharge Clinical Impression: Abdominal pain Patient Disposition: Home, Self-Care Additional Instructions: No lifting > 10 pounds for 2 weeks No driving for one week Ice to the incision x 24 hours Remove dressing in 3 days Remain on low fat diet for one month Follow up in office in one week. Prescriptions: Continued albuterol sulfate [ProAir HFA] 90 mcg/actuation HFA aerosol inhaler 2 puff inhalation Q4-6H PRN (Reason: wheezing) 0RF No Action oxycodone-acetaminophen [Endocet] 5-325 mg tablet 1 tab PO Q6H PRN (Reason: pain (scale score 7-10)) Qty: 14 0RF albuterol sulfate 90 mcg/actuation HFA aerosol inhaler 1 puff inhalation QID PRN (Reason: shortness of breath or wheezing) Qty: 8.5 0RF Referrals: Gallo Tellez MD [Physician] - Physician,None [Primary Care Provider] - Discharge Date/Time: 06/20/21 17:23
== END 2021-06-20 17:23 | disposition home or self-care (01) ==
PROVIDERS: Emergency Medicine; Surgery; Emergency Provider Emergency Medicine Emergency Medical Services
PROC: 0FT44ZZ Resection of Gallbladder, Percutaneous Endoscopic Approach (ICD-10-PCS; CPT 47562; principal; 2021-06-20 14:30)
DX: K80.12 Calculus of gallbladder with acute and chronic cholecystitis without obstruction (principal); J45.909 Unspecified asthma, uncomplicated; Z79.899 Other long term (current) drug therapy; Z20.822 Contact with and (suspected) exposure to COVID-19
CPT/HCPCS: 47562; 36415; 74177; 76705; 80053; 80307; 81001; 81025; 83690; 85025; 87635; 88304; 96374; 96375; 99284; 99285; J1100; J1170; J1200; J1885; J2250; J2370; J2405; J2550; J2930; J3010; Q9967

== ENCOUNTER 2021-06-21 10:08 | Emergency (ER) | payer OTHER, SELFPAY ==
--- NOTE | ~2021-06-21 | CT_ITS ---
EXAMINATION: CT ABDOMEN AND PELVIS WITH CONTRAST CLINICAL INFORMATION: 26-year-old female with recent surgery. Right upper quadrant pain. COMPARISON: Right upper quadrant abdominal ultrasound and CT of the abdomen and pelvis done on 06/25/2021. TECHNIQUE: Multidetector volumetric images were obtained from the superior aspect of the liver through the pubic symphysis following administration 85 mL of Omnipaque 350 intravenous contrast. Sagittal and coronal reformatted images were obtained on the technologist's workstation. Oral contrast: No This CT examination was performed using dose optimization techniques as appropriate, variously including the following: *Automated exposure control *Adjustment of mA and/or kV according to patient size (this includes techniques or standardized protocols for targeted exams where dose is matched to indication/reason for exam; i.e. extremities or head) *Use of iterative reconstruction technique DLP: 949 mGy-cm FINDINGS: LUNG BASES: The visualized lung bases are unremarkable. LIVER, GALLBLADDER, AND BILIARY TREE: The liver is normal in size, shape, and attenuation. No focal hepatic lesion or biliary ductal dilatation is present. The gallbladder is surgically absent, new finding since CT of the abdomen and pelvis done yesterday. Postsurgical clips are noted at the gallbladder bed. No evidence of any fluid collection seen at the surgical bed. The biliary tree is decompressed. The common bile duct shows progressive smooth distal tapering. No evidence of any choledocholithiasis. PANCREAS: Unremarkable. SPLEEN: Unremarkable. ADRENAL GLANDS: Unremarkable. KIDNEYS AND URETERS: The kidneys are normal in size, shape, and attenuation. No hydronephrosis, hydroureter, or calculi seen. No perinephric stranding. BLADDER: Unremarkable. GASTROINTESTINAL TRACT: The small, large bowel loops are decompressed. The appendix is well-visualized and is unremarkable. The distal second part of the duodenum shows prominent fluid, likely physiologic (37:8). ABDOMINAL WALL: Immediate postsurgical changes are noted around the umbilicus. LYMPH NODES: Normal. VASCULAR: Unremarkable. PELVIC VISCERA: There is no pelvic mass present. No significant free fluid. PERITONEAL CAVITY: Small volume pneumoperitoneum is noted, given the patient history of surgery, likely physiologic. OSSEOUS STRUCTURES: Mild periarticular sclerosis around the left SI joint, otherwise unremarkable. CT/CT abdomen pelvis w con IMPRESSION: 1. Small volume pneumoperitoneum, given the patient history of recent surgery, likely physiologic. 2. Surgically absent gallbladder and nondilated decompressed biliary tree and no evidence of any significant fluid collection around the surgical bed. 3. The etiology for right upper quadrant abdominal pain is not evident on these images. Fleischner guidelines were followed.
--- NOTE | ~2021-06-21 | CT_ITS ---
EXAMINATION: CT ANGIOGRAM OF THE CHEST WITH AND WITHOUT CONTRAST (CT PULMONARY ANGIOGRAM FOR PE) CLINICAL INFORMATION: Reason for Exam SOB, post op COMPARISON: None TECHNIQUE: Prior to contrast administration, noncontrast localization images were obtained. Subsequently, multidetector volumetric imaging was performed from the thoracic inlet to below the diaphragms following the administration of 65 mL Omnipaque 350 intravenous contrast. No contrast reaction reported Sagittal, coronal, and MIP oblique sagittal reformatted images were obtained on the CT workstation, uploaded to PACS, and reviewed. This CT examination was performed using dose optimization techniques as appropriate, variously including the following: *Automated exposure control *Adjustment of mA and/or kV according to patient size (this includes techniques or standardized protocols for targeted exams where dose is matched to indication/reason for exam; i.e. extremities or head) *Use of iterative reconstruction technique Total exam dose-length product 949 mGy-cm FINDINGS: QUALITY OF STUDY/CONTRAST BOLUS: Satisfactory. PULMONARY ARTERIES: No central or segmental pulmonary emboli. THORACIC AORTA: No aneurysm or dissection. LUNG: No focal consolidation, nodules or masses. Subtle groundglass opacities are noted throughout both lung batres likely represent hypoventilatory changes in this patient with recent surgery. PLEURA: No pleural effusion or pneumothorax. MEDIASTINUM: Normal heart size. No pericardial effusion. No hilar or mediastinal lymphadenopathy. No evidence of septal bowing or right heart strain. CHEST WALL/AXILLA: No axillary or internal mammary lymphadenopathy. OSSEOUS STRUCTURES: No acute or suspicious osseous abnormality. UPPER ABDOMEN: Pneumoperitoneum is present, given the history of recent surgery likely physiologic. No reflux of contrast into the hepatic veins to suggest elevated right heart pressures. CT/CT angio chest PE protocol IMPRESSION: 1. No CT evidence of pulmonary embolism. 2. Subtle groundglass opacities are noted throughout both lung batres likely represent hypoventilatory changes in this patient with recent surgery. 3. Visualized upper abdomen shows pneumoperitoneum likely physiologic given the history of recent surgery. VTE: Negative.
[2021-06-21 10:28] VITALS: BP 107/38; PULSE 62; RESP 20; TEMP 36.7; O2SAT 98; BMI 29.2
--- NOTE | 2021-06-21 11:12 | ED.GENADULT ---
HPI - General Adult General Chief complaint: General Medical Stated complaint: SOB sent urgent from care Time Seen by Provider: 06/21/21 11:12 Source: patient Mode of arrival: ambulatory Limitations: no limitations History of Present Illness HPI narrative: Patient is a 26 year old female presenting to the emergency department today with right upper quadrant abdominal pain and shortness of breath. Patient states that she had surgery yesterday to have her gallbladder removed and she is still having RUQ abdominal pain as well as feeling short of breath at times. Patient denies any dizziness, lightheadedness, nausea, vomiting, fever, chills, blurry vision, double vision, loss of vision, chest pain, back pain, night sweats, pain with urination, increased urinary frequency, increased urinary urgency, blood in her urine or stool, syncope or a near syncopal episode, recent trauma or falls, bowel incontinence, bladder incontinence, bowel retention, bladder retention, or any other complaints at this time. Onset (ago): hour(s) Location: abdomen Radiation: non-radiation Severity: mild Severity scale (1-10): 3 Quality: dull Pain Consistency: constant Relieving factors: none Exacerbating factors: none Associated symptoms: shortness of breath Treatments prior to arrival: none Related Data Home Medications Medication Instructions Recorded Confirmed albuterol sulfate 90 mcg/actuation 2 puff INHALATION Q4-6H PRN 06/20/21 06/20/21 aerosol inhaler (ProAir HFA) Previous Rx's Medication Instructions Recorded oxycodone-acetaminophen 5 mg-325 1 tab PO Q6H PRN #14 tab 06/20/21 mg tablet (Endocet) albuterol sulfate 90 mcg/actuation 1 puff INHALATION QID PRN #8.5 g 06/21/21 aerosol inhaler Allergies Allergy/AdvReac Type Severity Reaction Status Date / Time procaine [From NOVOCAIN] Allergy Mild HIVES FROM Verified 06/20/21 12:10 DENTAL NOVOCAIN amoxicillin [AMOXICILLIN] Allergy Unknown HIVES Verified 06/20/21 12:10 Penicillins [PCN] Allergy Unknown HIVES Verified 06/20/21 12:10 fish Allergy Unknown anaphylaxis Uncoded 08/30/19 00:00 novacaine Allergy Unknown hives Uncoded 08/30/19 00:00 SHELLFISH Allergy Unknown HIVES Uncoded 11/16/19 16:12 shellfish Allergy Unknown anaphylaxis Uncoded 08/30/19 00:00 Review of Systems Constitutional: Constitutional: Reports no additional constitutional complaints, Denies chills, Denies fever(s) and Denies night sweats Eyes: Eyes: Reports no additional eye complaints, Denies blurry vision, Denies change in vision, Denies diplopia, Denies eye discharge, Denies loss of vision and Denies eye pain ENT: Denies dizziness Cardiovascular: Cardiovascular: Reports no additional cardiovascular complaints, Denies chest pain, Denies lightheadedness, Denies Loss of Consciousness and Reports dyspnea (intermittent) Respiratory: Respiratory: Reports no additional respiratory complaints and Reports dyspnea (intermittent) Gastrointestinal: Gastrointestinal: Reports no additional gastrointestinal complaints, Reports abdominal pain, Denies melena, Denies hematochezia, Denies change in bowel habits and Denies change in stool character Genitourinary: Genitourinary: Denies hematuria, Denies urinary frequency, Denies dysuria, Denies urinary incontinence, Denies urinary hesitancy and Denies urinary urgency Musculoskeletal: Musculoskeletal: Reports no additional musculoskeletal complaints, Denies numbness and Denies tingling Neurologic: Denies dizziness, Denies loss of vision, Denies numbness and Denies tingling Psychiatric: Psychiatric: Reports no additional psychiatric complaints Endocrine: Endocrine: Reports no additional endocrine complaints Hematologic/Lymphatic: Hematologic/Lymphatic: Reports no additional hematologic/lymphatic complaints Allergic/Immunologic: Allergic/Immunologic: Reports no additional allergic/immunologic complaints PMFSH Past Medical History Attestation statement: The following information was validated with the patient. Source: old records reviewed Medical History Asthma Surgical History Hx of wisdom tooth extraction Social History Social History Patient Tobacco Use Status: Never used Tobacco Advance Directives: No Advance Directives Information Provided: No Patient : No Physical Exam ED Vital Signs: Vital Signs - 24 hr 06/21/21 10:28 Temperature 98.0 F Pulse Rate 62 Respiratory Rate 20 Blood Pressure 107/38 L Pulse Oximetry 98 BMI result Body Mass Index 29.2 Const General: cooperative, no acute distress, alert and awake Nutritional Appearance: well nourished Orientation/consciousness: patient oriented x3 Limitations: no limitations HENMT Head: Yes normal to inspection and Yes atraumatic Ears: hearing grossly normal bilaterally and external ears normal General nose exam: Normal external nose present, no nasal discharge noted and no epistaxis Face and sinus: Yes normal facial exam, No abrasion and No laceration Mouth: Normal oral and palatal mucosa present, no drooling and no muffled voice Eyes General: appearance normal, both eyes and all related structures Periorbital: periorbital findings normal Eyelids: Yes eyelids normal Conjunctivae: conjunctivae normal Pupils: Equal, round and reactive pupils present EOM: EOMs intact bilaterally Neck Neck: Yes normal visual inspection, Yes full ROM and Yes no lymphadenopathy Chest Chest palpation & inspection: normal inspection of the chest Resp Effort & Inspection: normal respiratory effort and able to speak in complete sentences Auscultation: clear to auscultation bilaterally Cardio Rate: regular rate Rhythm: regular rhythm GI Other: laproscopy wound present, no signs of infection - no warmth, erythema, or discharge present Neuro General: patient oriented x3 and moves all extremities Cranial nerves: Yes Equal, round and reactive pupils present Cognition (Neuro): normal cognition Motor exam (neuro): 5/5 motor strength present throughout Sensory Exam: Normal double simultaneous stimulation for sensation Coordination: [id number] test normal Extrem General: Yes normal to inspection, Yes full ROM and Yes capillary refill normal Psych Appearance: grossly normal Mental Status: mental status grossly normal Affect: normal affect Attitude: cooperative Thought process: Normal thought process present Thought content: Normal thought content present Insight: Good insight present (Psych) Medical Decision Making [facility] Narrative Medical decision making narrative: Patient is a 26 year old female presenting to the emergency department today with right upper quadrant abdominal pain and intermittent shortness of breath. Patient's physical exam showed well healing laproscopic sites but was otherwise unremarkable. Patient's blood work was unremarkable. Patient's EKG was unremarkable. Patient's chest CT PE showed no acute process. Patient's abdominal CT showed small volume pneumoperitoneum that is likely physiologic secondary to recent surgery. I explained my physical exam findings as well as all test results to the patient. I answered all questions asked by the patient. Patient received IV Dilaudid which she had a systemic reaction to of itching but no difficulty breathing/shortness of breath. Patient was immediately given benadryl and solu-medrol which helped her allergic reaction symptoms. I stressed the importance of the patient taking her medication as prescribed. I stressed the importance of the patient following up with her primary care provider and her general surgeon. Patient was given an incentive spirometer with instructions on how to use it. I stressed the importance of the patient returning to the emergency department immediately if her symptoms were to worsen or if she were to develop any dizziness, shortness of breath, difficulty breathing, chest pain, blurry vision, loss of vision, nausea, vomiting, abdominal pain, fever, chills, back pain, or any other complaints. Patient verbalized agreement and understanding with this treatment plan and discharge. Differential Diagnosis Differential Diagnosis: post operative abdominal pain Medical Records Medical records reviewed: Yes I reviewed the patient's medical records. Lab Data Lab results reviewed: Yes I reviewed the patient's lab results. Result diagrams: 06/21/21 11:28 06/21/21 11:28 Labs: Lab Results 06/21/21 06/21/21 06/21/21 Range/Units 11:28 11:28 11:28 WBC 11.2 H (4.8-10.8) X10*3/uL RBC 4.58 (4.20-5.50) X10*6/uL Hgb 12.8 (12.0-16.0) g/dl Hct 39.6 (37.0-47.0) % MCV 86.5 (80.0-98.0) fL MCH 27.9 (27.0-33.0) pg MCHC 32.3 (31.0-35.0) g/dl RDW 13.1 (11.0-16.0) % Plt Count 368 (160-400) X10*3/uL MPV 9.3 L (9.4-12.3) fL Immature Gran % (Auto) 0.3 (0.0-0.4) % Neut % (Auto) 64.3 (45-73) % Lymph % (Auto) 29.5 (20-40) % [place] % (Auto) 5.7 (2-11) % Eos % (Auto) 0.0 (0-4) % Baso % (Auto) 0.2 (0-2) % Lymph # (Auto) 3.3 (1.2-4.9) X10*3/uL [place] # (Auto) 0.6 (0.1-1.2) X10*3/uL Eos # (Auto) 0.0 (0.0-0.4) X10*3/uL Baso # (Auto) 0.0 (0.0-0.2) X10*3/uL Abs Immat Gran (auto) 0.03 (0.00-0.03) X10*3/uL Absolute Neuts (auto) 7.2 (2.0-8.3) x10*3/uL Absolute Nucleated RBC 0.000 (0.0-0.012) X10*3/uL Nucleated RBC % (auto) 0.0 (0.0-0.2) /100WBC Sodium 139 (135-145) mmol/L Potassium 4.2 (3.3-5.1) mmol/L Chloride 105 (96-108) mmol/L Carbon Dioxide 27 (22-29) mmol/L Anion Gap 11 L (12-20) BUN 13 (9-16) mg/dL Creatinine 0.77 (0.5-1.4) mg/dL Estim Creat Clear Calc 101.4 Estimated GFR > 60 Random Glucose 109 (60-115) mg/dL Calcium 9.1 D (8.4-10.2) mg/dL Magnesium 1.8 (1.6-2.6) mg/dL Total Bilirubin 0.3 (0.0-1.0) mg/dL AST 12 (5-31) U/L ALT 13 (0-31) U/L Alkaline Phosphatase 65 (39-117) U/L Troponin I High Sens < 3.5 (<3.5-17.0) ng/L Total Protein 6.6 (6.5-8.0) g/dL Albumin 3.5 (3.5-5.0) g/dL Imaging Data CT scan - abdomen: Attestation: I personally reviewed and interpreted this imaging study as follows: Radiologist's impression: EXAMINATION: CT ABDOMEN AND PELVIS WITH CONTRAST? CLINICAL INFORMATION: 26-year-old female with recent surgery. Right upper quadrant pain.? COMPARISON: Right upper quadrant abdominal ultrasound and CT of the abdomen and pelvis done on 06/25/2021.? TECHNIQUE: Multidetector volumetric images were obtained from the superior aspect of the liver through the pubic symphysis following administration 85 mL of Omnipaque 350 intravenous contrast. Sagittal and coronal reformatted images were obtained on the technologist's workstation.? Oral contrast: No This CT examination was performed using dose optimization techniques as appropriate, variously including the following: *Automated exposure control *Adjustment of mA and/or kV according to patient size (this includes techniques or standardized protocols for targeted exams where dose is matched to indication/reason for exam; i.e. extremities or head) *Use of iterative reconstruction technique DLP: 949 mGy-cm FINDINGS: LUNG BASES: The visualized lung bases are unremarkable.? LIVER, GALLBLADDER, AND BILIARY TREE: The liver is normal in size, shape, and attenuation. No focal hepatic lesion or biliary ductal dilatation is present. The gallbladder is surgically absent, new finding since CT of the abdomen and pelvis done yesterday. Postsurgical clips are noted at the gallbladder bed. No evidence of any fluid collection seen at the surgical bed. The biliary tree is decompressed. The common bile duct shows progressive smooth distal tapering. No evidence of any choledocholithiasis. PANCREAS: Unremarkable.? SPLEEN: Unremarkable.? ADRENAL GLANDS: Unremarkable.? KIDNEYS AND URETERS: The kidneys are normal in size, shape, and attenuation. No hydronephrosis, hydroureter, or calculi seen. No perinephric stranding. ? BLADDER: Unremarkable.? GASTROINTESTINAL TRACT: The small, large bowel loops are decompressed. The appendix is well-visualized and is unremarkable. The distal second part of the duodenum shows prominent fluid, likely physiologic (37:8). ABDOMINAL WALL: Immediate postsurgical changes are noted around the umbilicus. LYMPH NODES: Normal. VASCULAR: Unremarkable. PELVIC VISCERA: There is no pelvic mass present. No significant free fluid. PERITONEAL CAVITY: Small volume pneumoperitoneum is noted, given the patient history of surgery, likely physiologic.? OSSEOUS STRUCTURES: Mild periarticular sclerosis around the left SI joint, otherwise unremarkable.? CT/CT abdomen pelvis w con IMPRESSION: ? 1. Small volume pneumoperitoneum, given the patient history of recent surgery, likely physiologic. 2. Surgically absent gallbladder and nondilated decompressed biliary tree and no evidence of any significant fluid collection around the surgical bed. 3. The etiology for right upper quadrant abdominal pain is not evident on these images. ? Fleischner guidelines were followed. Dictated By: Onelia Darling MD Signed By: Electronically signed by Onelia Darling MD 06/21/[address] scan - chest: Attestation: I personally reviewed and interpreted this imaging study as follows: Radiologist's impression: EXAMINATION: CT ANGIOGRAM OF THE CHEST WITH AND WITHOUT CONTRAST (CT PULMONARY ANGIOGRAM FOR PE) CLINICAL INFORMATION: Reason for Exam SOB, post op COMPARISON: None? TECHNIQUE: Prior to contrast administration, noncontrast localization images were obtained. ? Subsequently, multidetector volumetric imaging was performed from the thoracic inlet to below the diaphragms following the administration of 65 mL Omnipaque 350 intravenous contrast. No contrast reaction reported Sagittal, coronal, and MIP oblique sagittal reformatted images were obtained on the CT workstation, uploaded to PACS, and reviewed. This CT examination was performed using dose optimization techniques as appropriate, variously including the following: *Automated exposure control *Adjustment of mA and/or kV according to patient size (this includes techniques or standardized protocols for targeted exams where dose is matched to indication/reason for exam; i.e. extremities or head) *Use of iterative reconstruction technique Total exam dose-length product 949 mGy-cm FINDINGS: QUALITY OF STUDY/CONTRAST BOLUS: Satisfactory. PULMONARY ARTERIES: No central or segmental pulmonary emboli.? THORACIC AORTA: No aneurysm or dissection. LUNG: No focal consolidation, nodules or masses. Subtle groundglass opacities are noted throughout both lung batres likely represent hypoventilatory changes in this patient with recent surgery. PLEURA: No pleural effusion or pneumothorax. MEDIASTINUM: Normal heart size.? No pericardial effusion.? No hilar or mediastinal lymphadenopathy.? No evidence of septal bowing or right heart strain. CHEST WALL/AXILLA: No axillary or internal mammary lymphadenopathy. OSSEOUS STRUCTURES: No acute or suspicious osseous abnormality.? UPPER ABDOMEN: Pneumoperitoneum is present, given the history of recent surgery likely physiologic.? No reflux of contrast into the hepatic veins to suggest elevated right heart pressures. CT/CT angio chest PE protocol IMPRESSION: ? 1. No CT evidence of pulmonary embolism. 2. Subtle groundglass opacities are noted throughout both lung batres likely represent hypoventilatory changes in this patient with recent surgery. 3. Visualized upper abdomen shows pneumoperitoneum likely physiologic given the history of recent surgery. ? VTE: Negative. Dictated By: Onelia Darling MD Signed By: Electronically signed by Onelia Darling MD 06/21/21 1410 ECG Data Attestation: I personally reviewed and interpreted this ECG as follows: Prior ECG tracings: not available for review Interpretation: Vent. Rate: 054 BPM ? ? Atrial Rate: 054 BPM P-R Int: 108 ms? QRS Dur: 086 ms QT Int: 428 ms ? ? ? P-R-T Axes: 049 076 047 degrees QTc Int: 405 ms ? Sinus bradycardia with short [place] Otherwise normal ECG No previous ECGs available DD/ [id number] Critical Care Time Critical Care Time Critical Care Time: Yes Total Critical Care Time: 30 Attestation: I spent 30 minutes of Critical Care Time with this patient. This does not include time spent on separately reported billable procedures. Discharge Plan Discharge Clinical Impression: Abdominal pain Patient Disposition: Home, Self-Care Instructions: Abdominal Pain (ED) Additional Instructions: Follow up with your primary care provider and your general surgeon who performed the procedure. Return to the emergency department immediately if your symptoms worsen or if you develop any dizziness, shortness of breath, difficulty breathing, chest pain, blurry vision, loss of vision, nausea, vomiting, abdominal pain, fever, chills, back pain, or any other complaints. Prescriptions: New albuterol sulfate 90 mcg/actuation HFA aerosol inhaler 1 puff inhalation QID PRN (Reason: shortness of breath or wheezing) Qty: 8.5 0RF No Action albuterol sulfate [ProAir HFA] 90 mcg/actuation HFA aerosol inhaler 2 puff inhalation Q4-6H PRN (Reason: wheezing) 0RF oxycodone-acetaminophen [Endocet] 5-325 mg tablet 1 tab PO Q6H PRN (Reason: pain (scale score 7-10)) Qty: 14 0RF Referrals: Physician,None [Primary Care Provider] - (Follow up with your PCP. ) Interventions: ED Discharge Assessment Last Done: 06/21/21 16:00 Discharge Date/Time: 06/21/21 16:01 Print Language: Norwegian
--- NOTE | 2021-06-21 11:14 | ECG_ITS ---
Test Reason : sob post op Blood Pressure : / mmHG Vent. Rate : 054 BPM Atrial Rate : 054 BPM P-R Int : 108 ms QRS Dur : 086 ms QT Int : 428 ms P-R-T Axes : 049 076 047 degrees QTc Int : 405 ms Sinus bradycardia with short VT Otherwise normal ECG No previous ECGs available Referred By: Candy Smith Electronically Signed By:ANIYAH MOHR MD
[2021-06-21 11:38] LABS: MANUAL DIFF FLAG NO
[2021-06-21 11:41] LABS: Basophils Percent Auto 0.2 % (0-2); Hematocrit 39.6 % (37.0-47.0); Hemoglobin 12.8 g/dl (12.0-16.0); Imm Gran Abs Auto 0.03 X10*3/uL (0.00-0.03); Imm Gran Pct Auto 0.3 % (0.0-0.4); Lymphocytes Absolute Auto 3.3 X10*3/uL (1.2-4.9); Lymphocytes Percent Auto 29.5 % (20-40); Mean Corpuscular HGB Conc 32.3 g/dl (31.0-35.0); Mean Corpuscular Hemoglobin 27.9 pg (27.0-33.0); Mean Corpuscular Volume 86.5 fL (80.0-98.0); Mean Platelet Volume 9.3 fL (9.4-12.3); Monocytes Absolute Auto 0.6 X10*3/uL (0.1-1.2); Monocytes Percent Auto 5.7 % (2-11); Neutrophils Absolute Auto 7.2 x10*3/uL (2.0-8.3); Neutrophils Percent Auto 64.3 % (45-73); Platelet Count 368 X10*3/uL (160-400); Red Blood Count 4.58 X10*6/uL (4.20-5.50); Red Cell Distribution Width 13.1 % (11.0-16.0); White Blood Count 11.2 X10*3/uL (4.8-10.8)
[2021-06-21] MEDS: ondansetron HCL 4 MG/2 ML VIAL IVPUSH (11:48)
[2021-06-21] MEDS: HYDROmorphone HCl 1 MG/ML SYRINGE IVPUSH (11:48)
[2021-06-21 12:13] LABS: Alanine Aminotransferase 13 U/L (0-31); Albumin Level 3.5 g/dL (3.5-5.0); Alkaline Phosphatase 65 U/L (39-117); Anion Gap 11 (12-20); Aspartate Amino Transferase 12 U/L (5-31); Bilirubin Total 0.3 mg/dL (0.0-1.0); Blood Urea Nitrogen 13 mg/dL (9-16); Calcium 9.1 mg/dL (8.4-10.2); Carbon Dioxide 27 mmol/L (22-29); Chloride 105 mmol/L (96-108); Creatinine Clr Calc Pharmacy 101.4; Estimated Glomerular Filt Rate > 60; Glucose Random 109 mg/dL (60-115); Magnesium 1.8 mg/dL (1.6-2.6); Potassium 4.2 mmol/L (3.3-5.1); Sodium 139 mmol/L (135-145); Total Protein 6.6 g/dL (6.5-8.0)
[2021-06-21 12:21] LABS: Troponin-I High Sensitivity < 3.5 ng/L (<3.5-17.0)
[2021-06-21] MEDS: diphenhydrAMINE HCL 50 MG/ML VIAL 25 MG IVPUSH (12:48)
[2021-06-21] MEDS: methylPREDNISolone Sod Succ 125 MG/2 ML VIAL IVPUSH (12:51)
[2021-06-21] MEDS: iohexoL 350 MG/ML 100 ML INFUS..BTL IV (13:38)
== END 2021-06-21 16:01 | disposition home or self-care (01) ==
PROVIDERS: Physician Assistant Medical; Emergency Provider Emergency Medicine
DX: R10.11 Right upper quadrant pain (principal); R06.02 Shortness of breath; Z79.899 Other long term (current) drug therapy
CPT/HCPCS: 36415; 71275; 74177; 80053; 83735; 84484; 85025; 93005; 96374; 96375; 99283; 99285; J1170; J1200; J2405; J2930; Q9967

== ENCOUNTER → 2021-06-23 10:17 | Outpatient (BNVA) | payer OTHER, SELFPAY | PROVIDERS: Visit Provider Surgery | DX: Z48.00 Encounter for change or removal of nonsurgical wound dressing (principal) | CPT/HCPCS: 99211 ==

== ENCOUNTER → 2021-06-27 09:48 | Outpatient (BNVA) | payer OTHER, SELFPAY | PROVIDERS: Visit Provider Surgery | DX: Z48.815 Encounter for surgical aftercare following surgery on the digestive system (principal); Z87.19 Personal history of other diseases of the digestive system | CPT/HCPCS: 99212 ==

== ENCOUNTER 2023-06-22 08:02 | Emergency (ER) | payer OTHER, SELFPAY ==
--- NOTE | ~2023-06-22 | XR_ITS ---
EXAMINATION: XR CHEST CLINICAL INFORMATION: Cough and shortness of breath with chest pain COMPARISON: CT pulmonary angiogram 06/21/2021 TECHNIQUE: 2 views of the chest were obtained. FINDINGS: No significant abnormality is noted involving the heart, lungs, mediastinum, bony thorax or soft tissues. XR/XR chest 2V IMPRESSION: Unremarkable examination.
[2023-06-22 08:24] VITALS: BP 122/71; PULSE 92; RESP 18; TEMP 37.1; O2SAT 99; BMI 30.7
--- NOTE | 2023-06-22 08:31 | ECG_ITS ---
Test Reason : chest pain with cough Blood Pressure : / mmHG Vent. Rate : 078 BPM Atrial Rate : 078 BPM P-R Int : 118 ms QRS Dur : 082 ms QT Int : 344 ms P-R-T Axes : 059 085 036 degrees QTc Int : 392 ms Normal sinus rhythm Normal ECG When compared with ECG of 21-JUN-2021 11:14, No significant change was found Referred By: Generic ED Physician Electronically Signed By:ANIYAH MOHR MD
--- NOTE | 2023-06-22 08:34 | ED.GENADULT ---
HPI - General Adult General Chief complaint: Upper Respiratory Symptoms Stated complaint: Chills/Headache Time Seen by Provider: 06/22/23 08:34 Source: patient Mode of arrival: ambulatory Limitations: no limitations History of Present Illness HPI narrative: Patient is a 28 year old assigned female at with no reported medical history presenting to the emergency department today with a headache, cough, and body aches. Patient states that over the last 2 weeks she has had a cough, headache, and body aches. Patient states that she was seen at the urgent care and given azithromycin and steroids but it didn't help. Patient denies any dizziness, lightheadedness, abdominal pain, nausea, vomiting, fever, chills, blurry vision, double vision, loss of vision, chest pain, difficulty breathing, shortness of breath, back pain, night sweats, pain with urination, increased urinary frequency, increased urinary urgency, blood in her urine or stool, syncope or a near syncopal episode, recent trauma or falls, bowel incontinence, bladder incontinence, bowel retention, bladder retention, or any other complaints at this time. Onset (ago): week(s) (2) Severity: mild Severity scale (1-10): 4 Relieving factors: none Exacerbating factors: none Associated symptoms: cough and headaches Treatments prior to arrival: other (azithromycin and prednisone) Related Data Home Medications ?Medication ?Instructions ?Recorded ?Confirmed albuterol sulfate 90 mcg/actuation 2 puff inhalation Q4-6H PRN 06/20/21 06/27/21 aerosol inhaler (ProAir HFA) wheezing Previous Rx's ?Medication ?Instructions ?Recorded albuterol sulfate 90 mcg/actuation 1 puff inhalation QID PRN 06/21/21 aerosol inhaler shortness of breath or wheezing #8.5 grams oxycodone-acetaminophen 5 mg-325 1 tab PO Q6H PRN pain (scale score 06/23/21 mg tablet (Endocet) 7-10) #14 tabs oseltamivir 75 mg capsule (Tamiflu) 75 mg PO DAILY 5 days #5 caps 06/22/23 Allergies Allergy/AdvReac Type Severity Reaction Status Date / Time procaine [From NOVOCAIN] Allergy Mild HIVES FROM Verified 06/22/23 08:29 DENTAL NOVOCAIN amoxicillin [AMOXICILLIN] Allergy Unknown HIVES Verified 06/22/23 08:29 Penicillins [PCN] Allergy Unknown HIVES Verified 06/22/23 08:29 fish Allergy Unknown anaphylaxis Uncoded 06/22/23 08:29 novacaine Allergy Unknown hives Uncoded 06/22/23 08:29 SHELLFISH Allergy Unknown HIVES Uncoded 06/22/23 08:29 shellfish Allergy Unknown anaphylaxis Uncoded 06/22/23 08:29 Review of Systems Constitutional: Constitutional: Reports no additional constitutional complaints, Denies chills, Denies fever(s) and Denies night sweats Eyes: Eyes: Reports no additional eye complaints, Denies blurry vision, Denies change in vision, Denies diplopia, Denies eye discharge, Denies loss of vision and Denies eye pain ENT: Denies dizziness Cardiovascular: Cardiovascular: Reports no additional cardiovascular complaints, Denies chest pain, Denies lightheadedness, Denies Loss of Consciousness and Denies dyspnea Respiratory: Respiratory: Reports no additional respiratory complaints and Denies dyspnea Gastrointestinal: Gastrointestinal: Reports no additional gastrointestinal complaints, Denies abdominal pain, Denies melena, Denies hematochezia, Denies change in bowel habits and Denies change in stool character Genitourinary: Genitourinary: Denies hematuria, Denies urinary frequency, Denies dysuria, Denies urinary incontinence, Denies urinary hesitancy and Denies urinary urgency Musculoskeletal: Musculoskeletal: Reports no additional musculoskeletal complaints, Denies numbness and Denies tingling Neurologic: Denies dizziness, Denies loss of vision, Denies numbness and Denies tingling Psychiatric: Psychiatric: Reports no additional psychiatric complaints Endocrine: Endocrine: Reports no additional endocrine complaints Hematologic/Lymphatic: Hematologic/Lymphatic: Reports no additional hematologic/lymphatic complaints Allergic/Immunologic: Allergic/Immunologic: Reports no additional allergic/immunologic complaints [facility] Past Medical History Attestation statement: The following information was validated with the patient. Source: old records reviewed and nursing notes reviewed Medical History Asthma Surgical History History of laparoscopic cholecystectomy (06/20/21) Hx of wisdom tooth extraction Social History Social History Patient Tobacco Use Status: Never used Tobacco Advance Directives: No Advance Directives Information Provided: Yes Physical Exam ED Vital Signs: Vital Signs - 24 hr 06/22/23 08:24 06/22/23 11:08 Temperature 98.8 F 98.4 F Pulse Rate 92 85 Respiratory Rate 18 18 Blood Pressure 122/71 100/56 L Pulse Oximetry 99 97 Oxygen Delivery Method Room Air Room Air BMI result Body Mass Index 30.7 Const General: cooperative, no acute distress, alert and awake Nutritional Appearance: well nourished Orientation/consciousness: patient oriented x3 Limitations: no limitations HENMT Head: Yes normal to inspection and Yes atraumatic Ears: hearing grossly normal bilaterally and external ears normal General nose exam: Normal external nose present, no nasal discharge noted and no epistaxis Face and sinus: Yes normal facial exam, No abrasion and No laceration Mouth: Normal oral and palatal mucosa present, no drooling and no muffled voice Eyes General: appearance normal, both eyes and all related structures Periorbital: periorbital findings normal Eyelids: Yes eyelids normal Conjunctivae: conjunctivae normal Pupils: Equal, round and reactive pupils present EOM: EOMs intact bilaterally Neck Neck: Yes normal visual inspection, Yes full ROM and Yes no lymphadenopathy Chest Chest palpation & inspection: normal inspection of the chest Resp Effort & Inspection: normal respiratory effort and able to speak in complete sentences GI Inspection: Yes normal to inspection Neuro General: patient oriented x3 and moves all extremities Cranial nerves: Yes Equal, round and reactive pupils present Cognition (Neuro): normal cognition Motor exam (neuro): 5/5 motor strength present throughout Sensory Exam: Normal double simultaneous stimulation for sensation Coordination: [id number] test normal Extrem General: Yes normal to inspection, Yes full ROM and Yes capillary refill normal Psych Appearance: grossly normal Mental Status: mental status grossly normal Affect: normal affect Attitude: cooperative Thought process: Normal thought process present Thought content: Normal thought content present Insight: Good insight present (Psych) Medications Administered Discontinued Medications Generic Name Dose Route Start Last Admin Trade Name Freq PRN Reason Stop Dose Admin Sodium Chloride 1,000 mls @ 999 mls/hr 06/22/23 08:45 06/22/23 10:22 Ns IV 06/22/23 09:45 Infused .Q1H1M DION Infusion Ketorolac Tromethamine 15 mg 06/22/23 08:46 06/22/23 09:15 Ketorolac Tromethamine 15 Mg/Ml Vial IVPUSH 06/22/23 08:47 15 mg ONCE ONE Administration Medical Decision Making Medical Decision Making [facility] Narrative: Patient is a 28 year old assigned female at with no reported medical history presenting to the emergency department today with a cough, headache, and body aches. Patient's physical exam was unremarkable. Patient's blood work was unremarkable. Patient's urine showed no acute process. Patient's EKG was unremarkable. Patient's chest x-ray showed no acute process. Patient's COVID-19, RSV, and strep swabs were negative. Patient's influenza test was positive. I explained my physical exam findings as well as all test results to the patient. I answered all questions asked by the patient. I explained to the patient that tamiflu likely wouldn't be effective as her symptoms have been present for 2 weeks however, the patient requested it be prescribed. I stressed the importance of the patient taking her medication as prescribed. I stressed the importance of the patient following up with her primary care provider. I stressed the importance of the patient returning to the emergency department immediately if her symptoms were to worsen or if she were to develop any dizziness, shortness of breath, difficulty breathing, chest pain, blurry vision, loss of vision, nausea, vomiting, abdominal pain, fever, chills, back pain, or any other complaints. Patient verbalized agreement and understanding with this treatment plan and discharge. Differential Diagnosis Differential Diagnoses: The differential diagnosis associated with the presentation includes Influenza COVID-19 RSV Viral illness Admission/Observation Consideration of admission/observation: Escalation of care including admission/observation considered Patient would have been admitted to the hospital had her work up had any findings where hospital admission was appropriate and her clinical presentation warranted hospital admission. Lab Data [facility] Lab Attestation statement: I reviewed the patient's lab results. My interpretation of these results are in the [facility] Rationale portion of this note. 06/22/23 09:10 06/22/23 09:10 Labs: Lab Results 06/22/23 06/22/23 06/22/23 Range/Units 08:12 08:19 08:48 WBC (4.8-10.8) X10*3/uL RBC (4.20-5.50) X10*6/uL Hgb (12.0-16.0) g/dl Hct (37.0-47.0) % MCV (80.0-98.0) fL MCH (27.0-33.0) pg MCHC (31.0-35.0) g/dl RDW (11.0-16.0) % Plt Count (160-400) X10*3/uL MPV (9.4-12.3) fL Immature Gran % (Auto) (0.0-0.4) % Neut % (Auto) (45-73) % Lymph % (Auto) (20-40) % [place] % (Auto) (2-11) % Eos % (Auto) (0-4) % Baso % (Auto) (0-2) % Lymph # (Auto) (1.2-4.9) X10*3/uL [place] # (Auto) (0.1-1.2) X10*3/uL Eos # (Auto) (0.0-0.4) X10*3/uL Baso # (Auto) (0.0-0.2) X10*3/uL Abs Immat Gran (auto) (0.00-0.03) X10*3/uL Absolute Neuts (auto) (2.0-8.3) x10*3/uL Absolute Nucleated RBC (0.0-0.012) X10*3/uL Nucleated RBC % (auto) (0.0-0.2) /100WBC Sodium (135-145) mmol/L Potassium (3.3-5.1) mmol/L Chloride (96-108) mmol/L Carbon Dioxide (22-29) mmol/L Anion Gap (12-20) BUN (9-16) mg/dL Creatinine (0.5-1.4) mg/dL Estim Creat Clear Calc Estimated GFR Random Glucose (60-115) mg/dL Calcium (8.4-10.2) mg/dL Total Bilirubin (0.0-1.0) mg/dL AST (5-31) U/L ALT (0-31) U/L Alkaline Phosphatase (39-117) U/L Total Protein (6.5-8.0) g/dL Albumin (3.5-5.0) g/dL Beta HCG, Quant mIU/mL Urine Color Yellow Urine Appearance Cloudy Urine pH 6.0 (5.0-9.0) Ur Specific Larue 1.025 (1.005-1.025) Urine Protein Negative (Neg-Trace) mg/dL Urine Glucose (UA) Negative (Negative) mg/dL Urine Ketones Negative (Negative) mg/dL Urine Blood Negative (Negative) Urine Nitrite Negative (Negative) Ur Leukocyte Esterase Trace H (Negative) Urine RBC 0-2 (0-2) /HPF Urine WBC 0-5 (0-5) /HPF Ur Squamous Epith Cells >20 (0-2) /HPF Urine Bacteria 3+ (None Seen) Hyaline Casts 0-2 (0-2) /LPF Monoscreen (Negative) Influenza Type A (PCR) POSITIVE A (Negative) Influenza Type B (PCR) NEGATIVE (Negative) RSV RNA Qual (PCR) NEGATIVE (Negative) SARS-CoV-2 RNA (RT-PCR) NEGATIVE (Negative) S. pyogenes GrpA VASHTI Negative (Negative) 06/22/23 Range/Units 09:10 WBC 8.6 (4.8-10.8) X10*3/uL RBC 5.15 (4.20-5.50) X10*6/uL Hgb 14.6 (12.0-16.0) g/dl Hct 43.6 (37.0-47.0) % MCV 84.7 (80.0-98.0) fL MCH 28.3 (27.0-33.0) pg MCHC 33.5 (31.0-35.0) g/dl RDW 12.2 (11.0-16.0) % Plt Count 300 (160-400) X10*3/uL MPV 9.1 L (9.4-12.3) fL Immature Gran % (Auto) 0.4 (0.0-0.4) % Neut % (Auto) 62.6 (45-73) % Lymph % (Auto) 25.0 (20-40) % [place] % (Auto) 9.6 (2-11) % Eos % (Auto) 1.9 (0-4) % Baso % (Auto) 0.5 (0-2) % Lymph # (Auto) 2.1 (1.2-4.9) X10*3/uL [place] # (Auto) 0.8 (0.1-1.2) X10*3/uL Eos # (Auto) 0.2 (0.0-0.4) X10*3/uL Baso # (Auto) 0.0 (0.0-0.2) X10*3/uL Abs Immat Gran (auto) 0.03 (0.00-0.03) X10*3/uL Absolute Neuts (auto) 5.4 (2.0-8.3) x10*3/uL Absolute Nucleated RBC 0.000 (0.0-0.012) X10*3/uL Nucleated RBC % (auto) 0.0 (0.0-0.2) /100WBC Sodium 139 (135-145) mmol/L Potassium 4.1 (3.3-5.1) mmol/L Chloride 107 (96-108) mmol/L Carbon Dioxide 23 (22-29) mmol/L Anion Gap 13 (12-20) BUN 10 (9-16) mg/dL Creatinine 0.75 (0.5-1.4) mg/dL Estim Creat Clear Calc 104.8 Estimated GFR > 60 Random Glucose 97 (60-115) mg/dL Calcium 9.2 (8.4-10.2) mg/dL Total Bilirubin 0.4 (0.0-1.0) mg/dL AST 16 (5-31) U/L ALT 14 (0-31) U/L Alkaline Phosphatase 58 (39-117) U/L Total Protein 7.3 (6.5-8.0) g/dL Albumin 3.9 (3.5-5.0) g/dL Beta HCG, Quant < 2 mIU/mL Urine Color Urine Appearance Urine pH (5.0-9.0) Ur Specific Larue (1.005-1.025) Urine Protein (Neg-Trace) mg/dL Urine Glucose (UA) (Negative) mg/dL Urine Ketones (Negative) mg/dL Urine Blood (Negative) Urine Nitrite (Negative) Ur Leukocyte Esterase (Negative) Urine RBC (0-2) /HPF Urine WBC (0-5) /HPF Ur Squamous Epith Cells (0-2) /HPF Urine Bacteria (None Seen) Hyaline Casts (0-2) /LPF Monoscreen Negative (Negative) Influenza Type A (PCR) (Negative) Influenza Type B (PCR) (Negative) RSV RNA Qual (PCR) (Negative) SARS-CoV-2 RNA (RT-PCR) (Negative) S. pyogenes GrpA VASHTI (Negative) Independent Interpretation I performed an independent interpretation of an: EKG and Plain X-Ray Interpretation: My interpretation is in agreement with the radiologist's impression of this imaging study. EXAMINATION: XR CHEST CLINICAL INFORMATION: Cough and shortness of breath with chest pain COMPARISON: CT pulmonary angiogram 06/21/2021 TECHNIQUE: 2 views of the chest were obtained. FINDINGS: No significant abnormality is noted involving the heart, lungs, mediastinum, bony thorax or soft tissues. XR/XR chest 2V IMPRESSION: Unremarkable examination. Dictated By: Evans Alejandro MD Signed By: Electronically signed by Evans Alejandro MD 06/22/23 0915 Vent. Rate: 078 BPM Atrial Rate: 078 BPM P-R Int: 118 ms QRS Dur: 082 ms QT Int: 344 ms P-R-T Axes: 059 085 036 degrees QTc Int: 392 ms Normal sinus rhythm Normal ECG When compared with ECG of 21-JUN-2021 11:14, No significant change was found Electronically Signed By:ARAMIS GUTIERRES MD Dictated By: Aramis Gutierres MD Signed By: Electronically signed by Aramis Gutierres MD 06/22/23 1017 Radiology Impression Discussion of test interpretation with radiology: I have reviewed the radiologist's reading. Prescription Management I considered prescription management with: Antiviral (patient prescribed tamiflu) Critical Care Time Critical Care Time Critical Care Time: Yes Total Critical Care Time: 35 Attestation: I spent 35 minutes of Critical Care Time with this patient. This does not include time spent on separately reported billable procedures. Discharge Plan Discharge Clinical Impression: Influenza Patient Disposition: Home, Self-Care Instructions: Influenza (DC) Additional Instructions: Follow up with your primary care provider. Return to the emergency department immediately if your symptoms worsen or if you develop any dizziness, shortness of breath, difficulty breathing, chest pain, blurry vision, loss of vision, nausea, vomiting, abdominal pain, fever, chills, back pain, or any other complaints. Prescriptions: New oseltamivir [Tamiflu] 75 mg capsule 75 mg PO DAILY 5 Days Qty: 5 0RF No Action oxycodone-acetaminophen [Endocet] 5-325 mg tablet 1 tab PO Q6H PRN (Reason: pain (scale score 7-10)) Qty: 14 0RF albuterol sulfate [ProAir HFA] 90 mcg/actuation HFA aerosol inhaler 2 puff inhalation Q4-6H PRN (Reason: wheezing) albuterol sulfate 90 mcg/actuation HFA aerosol inhaler 1 puff inhalation QID PRN (Reason: shortness of breath or wheezing) Qty: 8.5 0RF Referrals: [facility] [place] Family Medicine [Provider Group] (Call to establish and follow up with a primary care provider. If you already have a primary care provider, please follow up with them.) [facility] [place] Primary Care[facility]idi [Provider Group] [facility] [place] Primary [facility] [Provider Group] Stand Alone Forms: Work/School Release Interventions: ED Discharge Assessment Last Done: 06/22/23 11:08 Discharge Date/Time: 06/22/23 11:08 Print Language: [place]se
[2023-06-22 08:35] LABS: IDNOW Serial# 08D9AD1C; Strep A Nucleic Acid Negative (Negative)
[2023-06-22 08:56] LABS: Appearance Urine Cloudy; Color Urine Yellow; Glucose Urine UA Negative (Negative); Leukocyte Esterase Urine Trace (Negative); Nitrite Urine Negative (Negative); Specific Gravity - Urine 1.025 (1.005-1.025); UMIC TRIGGER UACC YES; Urine Blood Negative (Negative); Urine Ketones Negative (Negative); Urine Protein Negative (Neg-Trace)
[2023-06-22 08:59] LABS: Bacteria Urine 3+ (None Seen); Hyaline Casts Urine 0-2 /LPF (0-2); RBC Urine 0-2 /HPF (0-2); Squamous Epithelial Cell Urine >20 /HPF (0-2); WBC Urine 0-5 /HPF (0-5)
[2023-06-22 09:07] LABS: Influenza A PCR POSITIVE (Negative); Influenza B PCR NEGATIVE (Negative); Resp Syncy Virus RNA Qual PCR NEGATIVE (Negative); SARS COV2 PCR INHOUSE NEGATIVE (Negative)
[2023-06-22 09:15] LABS: MANUAL DIFF FLAG NO
[2023-06-22] MEDS: 0.9 % Sodium Chloride 1,000 ML 999 ML IV (09:15)
[2023-06-22] MEDS: Ketorolac Tromethamine 15 MG/ML VIAL IVPUSH (09:15)
[2023-06-22 09:18] LABS: Basophils Percent Auto 0.5 % (0-2); Eosinophils Absolute Auto 0.2 X10*3/uL (0.0-0.4); Eosinophils Percent Auto 1.9 % (0-4); Hematocrit 43.6 % (37.0-47.0); Hemoglobin 14.6 g/dl (12.0-16.0); Imm Gran Abs Auto 0.03 X10*3/uL (0.00-0.03); Imm Gran Pct Auto 0.4 % (0.0-0.4); Lymphocytes Absolute Auto 2.1 X10*3/uL (1.2-4.9); Mean Corpuscular HGB Conc 33.5 g/dl (31.0-35.0); Mean Corpuscular Hemoglobin 28.3 pg (27.0-33.0); Mean Corpuscular Volume 84.7 fL (80.0-98.0); Mean Platelet Volume 9.1 fL (9.4-12.3); Monocytes Absolute Auto 0.8 X10*3/uL (0.1-1.2); Monocytes Percent Auto 9.6 % (2-11); Neutrophils Absolute Auto 5.4 x10*3/uL (2.0-8.3); Neutrophils Percent Auto 62.6 % (45-73); Platelet Count 300 X10*3/uL (160-400); Red Blood Count 5.15 X10*6/uL (4.20-5.50); Red Cell Distribution Width 12.2 % (11.0-16.0); White Blood Count 8.6 X10*3/uL (4.8-10.8)
[2023-06-22 09:46] LABS: Monotest Negative (Negative)
[2023-06-22 09:55] LABS: Alanine Aminotransferase 14 U/L (0-31); Albumin Level 3.9 g/dL (3.5-5.0); Alkaline Phosphatase 58 U/L (39-117); Anion Gap 13 (12-20); Aspartate Amino Transferase 16 U/L (5-31); Bilirubin Total 0.4 mg/dL (0.0-1.0); Blood Urea Nitrogen 10 mg/dL (9-16); Calcium 9.2 mg/dL (8.4-10.2); Carbon Dioxide 23 mmol/L (22-29); Chloride 107 mmol/L (96-108); Creatinine Clr Calc Pharmacy 104.8; Estimated Glomerular Filt Rate > 60; Glucose Random 97 mg/dL (60-115); HCG Quantitative < 2 mIU/mL; Potassium 4.1 mmol/L (3.3-5.1); Sodium 139 mmol/L (135-145); Total Protein 7.3 g/dL (6.5-8.0)
[2023-06-22 11:08] VITALS: BP 100/56; PULSE 85; RESP 18; TEMP 36.9; O2SAT 97
[2023-06-24 00:39] LABS: A. Phagocytphilium DNA,RT-PCR NOT DETECTED (NOT DETECTED); Babesia Microti DNA, RT-PCR NOT DETECTED (NOT DETECTED); Borrelia Miyamotoi,DNA RT-PCR NOT DETECTED (NOT DETECTED); E.Chaffeensis DNA RT-PCR NOT DETECTED (NOT DETECTED); Lyme(Borrelia ssp)DNA RT-PCR NOT DETECTED (NOT DETECTED)
== END 2023-06-22 11:08 | disposition home or self-care (01) ==
PROVIDERS: Physician Assistant Medical; Emergency Provider Emergency Medicine
DX: J10.1 Influenza due to other identified influenza virus with other respiratory manifestations (principal); Z11.52 Encounter for screening for COVID-19; R05.9 Cough, unspecified
CPT/HCPCS: 0241U; 36415; 71046; 80053; 81001; 84702; 85025; 86308; 87468; 87469; 87478; 87484; 87651; 87798; 93005; 96361; 96374; 99284; J1885

== ENCOUNTER → 2023-06-22 08:31 | Outpatient (BNV) | payer OTHER, SELFPAY | PROVIDERS: Emergency Provider Emergency Medicine; Visit Provider Internal Medicine Cardiovascular Disease | DX: R07.9 Chest pain, unspecified (principal) | CPT/HCPCS: 93010 ==

== ENCOUNTER 2024-11-02 23:25 | Emergency (ER) | payer OTHER, SELFPAY ==
--- NOTE | ~2024-11-02 | XR_ITS ---
CLINICAL HISTORY: cough, shortness of breath Chest X-ray, 2 Views COMPARISON: CR/ID/SR - XR CHEST 2 VIEWS - 06/22/23 09:00 EDT FINDINGS: No consolidation. No pleural effusion. No pneumothorax. No cardiomegaly. No acute fracture. Surgical clips in the right upper abdominal quadrant. IMPRESSION: No acute findings. This document has been electronically signed by: Bassam Kumari MD on 11/03/2024 03:54:49
[2024-11-02 23:29] VITALS: BP 115/71; PULSE 88; RESP 18; TEMP 36.4; O2SAT 97; BMI 32.1
[2024-11-03 00:04] LABS: Hematocrit 41.3 % (37.0-47.0); Hemoglobin 13.8 g/dl (12.0-16.0); Imm Gran Abs Auto 0.04 X10*3/uL (0.00-0.03); Imm Gran Pct Auto 0.3 % (0.0-0.4); Lymphocytes Absolute Auto 4.3 X10*3/uL (1.2-4.9); MANUAL DIFF FLAG NO; Mean Corpuscular HGB Conc 33.4 g/dl (31.0-35.0); Mean Corpuscular Hemoglobin 28.7 pg (27.0-33.0); Mean Corpuscular Volume 85.9 fL (80.0-98.0); NRBC Abs Auto 0.000 X10*3/uL (0.0-0.012); NRBC Pct Auto 0.0 /100WBC (0.0-0.2); Platelet Count 405 X10*3/uL (160-400); Red Blood Count 4.81 X10*6/uL (4.20-5.50); White Blood Count 12.6 X10*3/uL (4.8-10.8)
[2024-11-03 00:19] LABS: Alanine Aminotransferase 16 U/L (0-31); Albumin Level 4.1 g/dL (3.5-5.0); Alkaline Phosphatase 62 U/L (39-117); Anion Gap 12 (12-20); Aspartate Amino Transferase 17 U/L (5-31); Blood Urea Nitrogen 15 mg/dL (9-16); Calcium 9.4 mg/dL (8.4-10.2); Carbon Dioxide 28 mmol/L (22-29); Chloride 103 mmol/L (96-108); Creatinine Clr Calc Pharmacy 100.7; Estimated Glomerular Filt Rate > 60; Potassium 3.9 mmol/L (3.3-5.1); Sodium 139 mmol/L (135-145); Total Protein 6.9 g/dL (6.5-8.0)
--- NOTE | 2024-11-03 00:47 | ED_ITS ---
HPI - General Adult General Chief complaint: General Medical Stated complaint: resp symptoms Time Seen by Provider: 11/03/24 00:07 Source: patient, RN notes reviewed and old records reviewed Mode of arrival: ambulatory Limitations: no limitations History of Present Illness ED Provider: Tyrone ARIAS narrative: 29-year-old female with no significant past medical history presents for evaluation of of respiratory symptoms. Patient reports for the last 3 weeks she has been doing with ?a head cold. ? She reports that she initially had red, itchy eyes pain She then developed significant sinus congestion with a dry cough. She reports no developing left ear pain, no drainage from the ear. Denies any recent travel, sick contacts. She has been prescribed a Z-Ankur, a 3 day course of prednisone, tobramycin and recommended to take Pataday. She is also recommended take it daily Jaylin She reports the prednisone helped her for a day or 2 but then became worse when she stopped taking it None of the other medications helped her symptoms at all. She does complain of mild chest pain with coughing Related Data Home Medications ?Medication ?Instructions ?Recorded ?Confirmed albuterol sulfate 90 mcg/actuation 2 puff inhalation Q 4-6H PRN 06/20/21 06/27/21 aerosol inhaler (ProAir HFA) wheezing Previous Rx's ?Medication ?Instructions ?Recorded albuterol sulfate 90 mcg/actuation 1 puff inhalation Q ID PRN 06/21/21 aerosol inhaler shortness of breath or wheez ing #8.5 grams oxycodone-acetaminophen 5 mg-325 1 tab PO Q6H PRN pain (scale score 06/23/21 mg tablet (Endocet) 7-10) #14 tabs oseltamivir 75 mg capsule (Tamiflu) 75 mg PO DAILY 5 d ays #5 caps 06/22/23 doxycycline hyclate 100 mg tablet 100 mg PO BID #14 ta bs 11/03/24 prednisone 10 mg tablets in a dose 10 mg PO DIRECTE D #42 ea 11/03/24 pack Allergies Allergy/AdvReac Type Severity Reaction Status Date / Time procaine (From NOVOCAIN) Allergy Mild HIVES FROM Verified 06/22/23 08:29 DENTAL NOVOCAIN amoxicillin (AMOXICILLIN) Allergy Unknown HIVES Verified 06/22/23 08:29 Penicillins (PCN) Allergy Unknown HIVES Verified 06/22/23 08:29 polymyxin B Allergy Hives Verified 11/02/24 23:32 fish Allergy Unknown anaphylaxis Uncoded 06/22/23 08:29 novacaine Allergy Unknown hives Uncoded 06/22/23 08:29 SHELLFISH Allergy Unknown HIVES Uncoded 06/22/23 08:29 shellfish Allergy Unknown anaphylaxis Uncoded 06/22/23 08:29 Review of Systems 2 Constitutional: Constitutional: Reports body ache(s), Denies chills, Reports fatigue, Denies fever(s) and Reports headache(s) Eyes: Eyes: Denies blurry vision ENT: Denies ear discharge, Reports otalgia, Reports headache(s), Reports nasal congestion, Reports nasal discharge, Reports post nasal drip, Reports sinus pressure and Denies sore throat Cardiovascular: Cardiovascular: Denies dyspnea on exertion Respiratory: Respiratory: Reports change in phlegm color, Reports chest congestion, Reports cough, Reports pain with cough and Denies dyspnea on exertion Gastrointestinal: Gastrointestinal: Denies abdominal pain, Denies nausea and Denies vomiting Musculoskeletal: Musculoskeletal: Denies back pain Neurologic: Reports headache(s) Psychiatric: Psychiatric: Denies anxiety Endocrine: Endocrine: Reports fatigue PMFSH Past Medical History Medical History Asthma Surgical History History of laparoscopic cholecystectomy (06/20/21) Hx of wisdom tooth extraction Social History Social History Patient Tobacco Use Status: Never used Tobacco Advance Directives: No Do you have a plan to hurt others: No Plan Physical Exam ED Vital Signs: Vital Signs - 24 hr 11/02/24 23:29 Temperature 97.5 F Pulse Rate 88 Respiratory Rate 18 Blood Pressure 115/71 Pulse Oximetry 97 Oxygen Delivery Method Room Air BMI result Body Mass Index 32.1 Const General: healthy appearing, comfortable, no acute distress, alert and awake Nutritional Appearance: well nourished Orientation/consciousness: patient oriented x3 HENMT Other: Bilateral middle ear effusions without erythema, perforations. Mild retropharyngeal erythema without exudates Head: Yes normocephalic and Yes atraumatic Ears: EAC's normal Eyes Visual Batres: normal visual batres by confrontation Alignment and Position: alignment normal Conjunctivae: conjunctival abnormal bilateral conjunctival injection; Negative for conjunctival icterus, without chemosis, without discharge and without subconjunctival hemorrhages Sclerae: sclerae normal Pupils: Equal, round and reactive pupils present EOM: EOMs intact bilaterally Direct Ophthalmoscopy: normal light reflex Neck Neck: Yes full ROM Resp Effort & Inspection: normal respiratory effort, able to speak in complete sentences, no audible wheezes and not labored Auscultation: clear to auscultation bilaterally Cardio Rate: regular rate Rhythm: regular rhythm Skin General skin exam: elasticity normal Neuro General: patient oriented x3 Cranial nerves: Yes Equal, round and reactive pupils present and Yes Bilaterally intact EOM present Cognition (Neuro): normal cognition Extrem Other: Moving all extremities well without any obvious deformities Medical Decision Making Medical Decision Making [facility] Narrative: 29-year-old female presents for evaluation of upper respiratory symptoms. Her symptoms have been present for about 3 weeks. She has tried azithromycin, prednisone, Jaylin without any improvement in his symptoms. Given that her symptoms are bilateral and involving the eyes, ears and sinuses I feel the allergic rhinitis, allergic conjunctivitis of the most likely diagnosis. She has not improved with antibiotic therapy, antibiotic eyedrops. She would have minimal improvement with prednisone. Her labs show a slight leukocytosis of 12.6 with eosinophilia. Chemistries without any concerning abnormalities. Chest x-ray pending, viral swabs pending Differential Diagnosis Differential Diagnoses: The differential diagnosis associated with the presentation includes Allergic conjunctivitis Bacterial conjunctivitis Sinusitis Otitis media Otitis externa Middle ear effusion Upper respiratory infection Lab Data [facility] Lab Attestation statement: I reviewed the patient's lab results. As above 11/02/24 23:55 11/02/24 23:55 Labs: Lab Results 11/02/24 Range/Units 23:55 WBC 12.6 H (4.8-10.8) X10*3/uL RBC 4.81 (4.20-5.50) X10*6/uL Hgb 13.8 (12.0-16.0) g/dl Hct 41.3 (37.0-47.0) % MCV 85.9 (80.0-98.0) fL MCH 28.7 (27.0-33.0) pg MCHC 33.4 (31.0-35.0) g/dl RDW 12.0 (11.0-16.0) % Plt Count 405 H D (160-400) X10*3/uL MPV 9.2 L (9.4-12.3) fL Immature Gran % (Auto) 0.3 (0.0-0.4) % Neut % (Auto) 44.7 L (45-73) % Lymph % (Auto) 34.3 (20-40) % [place] % (Auto) 5.1 (2-11) % Eos % (Auto) 14.5 H (0-4) % Baso % (Auto) 1.1 (0-2) % Lymph # (Auto) 4.3 (1.2-4.9) X10*3/uL [place] # (Auto) 0.6 (0.1-1.2) X10*3/uL Eos # (Auto) 1.8 H (0.0-0.4) X10*3/uL Baso # (Auto) 0.1 (0.0-0.2) X10*3/uL Abs Immat Gran (auto) 0.04 H (0.00-0.03) X10*3/uL Absolute Neuts (auto) 5.7 (2.0-8.3) x10*3/uL Absolute Nucleated RBC 0.000 (0.0-0.012) X10*3/uL Nucleated RBC % (auto) 0.0 (0.0-0.2) /100WBC Sodium 139 (135-145) mmol/L Potassium 3.9 (3.3-5.1) mmol/L Chloride 103 (96-108) mmol/L Carbon Dioxide 28 (22-29) mmol/L Anion Gap 12 (12-20) BUN 15 (9-16) mg/dL Creatinine 0.79 (0.5-1.4) mg/dL Estim Creat Clear Calc 100.7 Estimated GFR > 60 Random Glucose 98 (60-115) mg/dL Calcium 9.4 (8.4-10.2) mg/dL Total Bilirubin 0.2 (0.0-1.0) mg/dL AST 17 (5-31) U/L ALT 16 (0-31) U/L Alkaline Phosphatase 62 (39-117) U/L Total Protein 6.9 (6.5-8.0) g/dL Albumin 4.1 (3.5-5.0) g/dL Beta HCG, Quant < 2 mIU/mL Influenza Type A (PCR) NEGATIVE (Negative) Influenza Type B (PCR) NEGATIVE (Negative) RSV RNA Qual (PCR) NEGATIVE (Negative) SARS-CoV-2 RNA (RT-PCR) NEGATIVE (Negative) S. pyogenes GrpA VASHTI Negative (Negative) Independent Interpretation I performed an independent interpretation of an: Plain X-Ray Interpretation: No focal infiltrates or effusions Discharge Plan Discharge Clinical Impression: Acute upper respiratory infection Patient Disposition: Home, Self-Care Instructions: Upper Respiratory Infection (ED) Additional Instructions: Your workup in the ER was reassuring. It is unclear if your symptoms are allergic, viral but less likely infectious. However given that they are not improving over 3 weeks I recommend taking doxycycline twice daily for 1 week. Take the prednisone taper as prescribed. I recommend Jaylin-D once daily until your symptoms resolve Follow up with your primary doctor, return for new or worsening symptoms Prescriptions: New prednisone 10 mg tablets,dose pack 10 mg PO DIRECTED Qty: 42 0RF Rx Instructions: 60mg x 2 days, 50mg x 2 days, 40mg x 2 days, 30mg x 2 days, 20mg x 2 days, 10mg x 2 days doxycycline hyclate 100 mg tablet 100 mg PO BID Qty: 14 0RF No Action oxycodone-acetaminophen [Endocet] 5-325 mg tablet 1 tab PO Q6H PRN (Reason: pain (scale score 7-10)) Qty: 14 0RF albuterol sulfate [ProAir HFA] 90 mcg/actuation HFA aerosol inhaler 2 puff inhalation Q4-6H PRN (Reason: wheezing) albuterol sulfate 90 mcg/actuation HFA aerosol inhaler 1 puff inhalation QID PRN (Reason: shortness of breath or wheezing) Qty: 8.5 0RF oseltamivir [Tamiflu] 75 mg capsule 75 mg PO DAILY 5 Days Qty: 5 0RF Print Language: Kazakh
[2024-11-03 00:57] LABS: IDNOW Serial# 152EDE1D; Strep A Nucleic Acid Negative (Negative)
[2024-11-03 01:14] LABS: Resp Syncy Virus RNA Qual PCR NEGATIVE (Negative); SARS COV2 PCR INHOUSE NEGATIVE (Negative)
[2024-11-03 02:14] VITALS: BP 115/71; PULSE 88; RESP 18; TEMP 36.4; O2SAT 97
== END 2024-11-03 02:14 | disposition home or self-care (01) ==
PROVIDERS: Physician Assistant; Emergency Provider Emergency Medicine
DX: J06.9 Acute upper respiratory infection, unspecified (principal)
CPT/HCPCS: 71046; 80053; 84702; 85025; 87637; 87651; 99282; 99283

== ENCOUNTER → 2024-11-03 00:26 | Outpatient (BNV) | payer OTHER, SELFPAY | PROVIDERS: Emergency Provider Emergency Medicine; Visit Provider Radiology Diagnostic Radiology | DX: R05.9 Cough, unspecified (principal); R06.02 Shortness of breath | CPT/HCPCS: 71046 ==

== ENCOUNTER 2024-12-14 09:01 | Outpatient (AMB) | payer OTHER, SELFPAY ==
--- NOTE | 2024-12-14 09:04 | MHC.PC.OV ---
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: No Accompanied by: Self / Same As Patient Allergies procaine (From NOVOCAIN) Allergy (Mild, Verified 12/14/24 09:04) HIVES FROM DENTAL NOVOCAIN amoxicillin (AMOXICILLIN) Allergy (Unknown, Verified 12/14/24 09:04) HIVES Penicillins (PCN) Allergy (Unknown, Verified 12/14/24 09:04) HIVES polymyxin B Allergy (Verified 12/14/24 09:04) Hives fish Allergy (Unknown, Uncoded 06/22/23 08:29) anaphylaxis novacaine Allergy (Unknown, Uncoded 06/22/23 08:29) hives SHELLFISH Allergy (Unknown, Uncoded 06/22/23 08:29) HIVES shellfish Allergy (Unknown, Uncoded 06/22/23 08:29) anaphylaxis Tobacco use date assessed: 12/14/24 Dental Screening Dental Screen Date: 12/14/24 Did you have a dental visit in the last 12 months?: Yes Did you have a dental problem in the last 6 months where you did not have access to dental care?: No Was dental information given to patient?: Patient has dentist HPI HPI Comments History of Present Illness Details Consent Patient was informed and verbally consented to the use of an ambient scribe for clinic note documentation during this visit. History of Present Illness The patient is a 29-year-old female presenting with sinusitis, allergic rhinitis, asthma, and obesity. Sinusitis: - The patient reports recurrent sinus infections following episodes of allergic rhinitis, with the most recent episode requiring hospitalization. - She was treated with doxycycline, albuterol, nasal spray, and a short course of prednisone, which eventually resolved the infection. Allergic rhinitis: - The patient experiences severe allergic reactions, particularly to outdoor allergens such as grass, leading to frequent sinus infections. - Current management includes cetirizine and fluticasone nasal spray, although she reports limited relief. Asthma: - The patient has a history of asthma, currently uncontrolled with an ACT score of 17, indicating frequent nocturnal symptoms and daily use of albuterol. - She has been prescribed a new regimen including a steroid inhaler and montelukast to improve control. Obesity: - The patient has a BMI of 32.6, classifying her as having class 1 obesity. - She has been referred to a weight management clinic and a information officer for further evaluation and management. Review of Systems - Respiratory: Reports dyspnea on exertion and nocturnal cough. Denies hemoptysis or wheezing. - Allergic/Immunologic: Reports severe allergic reactions to outdoor allergens. Denies other allergic reactions. - Endocrine: Denies diabetes or thyroid issues. - Sleep: Reports difficulty falling asleep, attributed to phone use. Denies snoring or waking up gasping for air. 10-point ROS reviewed and negative except as noted in HPI Past Medical History - History of sinusitis requiring hospitalization - Asthma, currently uncontrolled - Gallbladder removal Health Maintenance - Pap smear due, last performed 4 years ago - Referred to weight management clinic for obesity - Referred to information officer for dietary management Physical Exam General: Well-appearing, in no acute distress. Vital signs: Blood pressure is great. Pulse is good. Respiration is good. BMI is 32.6, indicating obesity class 1. HEENT: Normocephalic, atraumatic. PERRLA, EOMI. Conjunctiva clear, sclera anicteric. Oropharynx clear, mucous membranes moist. TMs intact bilaterally. Neck: Supple, no lymphadenopathy, no thyromegaly, no JVD or carotid bruits. Cardiovascular: RRR, normal S1/S2, no murmurs, rubs, or gallops. Peripheral pulses 2+ and symmetric. No edema. Respiratory: Lungs clear to auscultation bilaterally, no wheezes, rales, or rhonchi. Normal effort. Abdomen: Soft, non-tender, non-distended. Normoactive bowel sounds. No hepatosplenomegaly, no masses. MSK: Full range of motion, no joint swelling or deformity. Normal gait. Skin: Warm, dry, intact. No rashes, lesions, or pallor. Neuro: Alert and oriented x3. Cranial nerves II-XII intact. Strength 5/5 throughout. Sensation intact. Reflexes 2+ symmetric. Normal coordination and gait. Psych: Appropriate mood and affect. Normal judgment and insight. Plan 1. Sinusitis - Continue current allergy management with cetirizine and fluticasone nasal spray. Consider further evaluation if symptoms persist. 2. Allergic Rhinitis - Continue cetirizine and fluticasone nasal spray. Add montelukast 10 mg at night for additional control. 3. Asthma - Refill albuterol inhaler and add a steroid inhaler for daily use. Schedule follow-up in two weeks to assess control. 4. Obesity - Refer to weight management clinic and information officer for comprehensive evaluation and management. Discussion Notes I discussed with the patient the management of her asthma, including the addition of a steroid inhaler and montelukast to improve control. We also talked about her obesity and the referral to a weight management clinic and information officer. I emphasized the importance of follow-up in two weeks to reassess her asthma control and review lab results. Patient Instructions - Use the steroid inhaler twice daily, even if feeling well. - Take montelukast 10 mg at night. - Continue using cetirizine and fluticasone nasal spray as directed. - Follow up in two weeks for asthma reassessment and lab review. - Attend appointments with the weight management clinic and information officer. Medical Decision Making The patient's asthma is currently uncontrolled, as indicated by her ACT score and symptoms. The decision to add a steroid inhaler and montelukast aims to achieve better control and prevent exacerbations. Her obesity requires a multidisciplinary approach, hence the referrals to a weight management clinic and information officer. The goal is to improve her overall health and reduce the risk of comorbidities. Total time spent caring for the patient today was 30 minutes. This includes time spent before the visit reviewing the chart, time spent documenting, and time spent reviewing laboratory results, diagnostic imaging, medications, performing a medically necessary evaluation, counseling on diagnoses, care coordination, ordering appropriate tests, ordering appropriate medications. [facility] Medical History Asthma Surgical History History of laparoscopic cholecystectomy (06/20/21) Hx of wisdom tooth extraction Family History (Updated 12/14/24 @ 09:13 by Cyril Delgado MA) Father Diabetes Mother High cholesterol Social History (Updated 12/14/24 @ 09:06 by Cyril Delgado MA) Housing: Apartment Alcohol intake: current Alcohol intake frequency: does not drink Patient Tobacco Use Status: Never used Tobacco service: No Current occupational status: employed Cognitive needs: No Hearing needs: No Vision needs: Yes (rx glasses) Questionnaire PHQ-9 Over the last 2 weeks, how often have you been bothered by any of the following problems? 1. Little interest or pleasure in doing things: not at all 2. Feeling down, depressed, or hopeless: not at all 3. Trouble falling or staying asleep, or sleeping too much: not at all 4. Feeling tired or having little energy: not at all 5. Poor appetite or overeating: not at all 6. Feeling bad about yourself - or that you are a failure or have let yourself or your family down: not at all 7. Trouble concentrating on things, such as reading the newspaper or watching television: not at all 8. Moving or speaking so slowly that other people could have noticed. Or the opposite - being so fidgety or restless that you have been moving around a lot more than usual: not at all 9. Thoughts that you would be better off or of hurting yourself in some way: not at all Total score: 0 Source: Developed by Drs. Jase Peter, Claudette Leonard, Steve Mcneil and colleagues, with an educational goran from [employer]. Thrive Questionnaire Date Thrive assessed: 12/14/24 I am a: Patient What is your living situation today?: I have a steady place to live Within the past 12 months, did the food you bought not last and you didn't have the money to get more?: Never true Within the past 12 months, did you worry whether your food would run out before you got money to buy more?: Never true Do you have trouble paying for medicines?: No Do you have trouble getting transportation to medical appointments?: No Do you have trouble paying your heating and electricity bill?: No Do you have trouble taking care of your child, family member or friend?: No Are you currently unemployed and looking for a job?: No Are you interested in more education?: No Please select the resources that you would like help with: None Currently or been in a relationship where the following occur: No concerns reported THRIVE Score: 0 AUDIT C Alcohol Use Questionnaire (AUDIT-C) 1. How often do you have a drink containing alcohol?: Never Total Score: 0 TIFFAYN-7 AMB Questionnaire TIFFANY-7 Feeling nervous, anxious, or on edge: 0 = Not at all Not being able to stop or control worryin = Not at all Worrying too much about different things: 0 = Not at all Trouble relaxin = Not at all Being so restless that it is hard to sit still: 0 = Not at all Becoming easily annoyed or irritable: 0 = Not at all Feeling afraid as if something awful might happen: 0 = Not at all Total TIFFANY-7 score (0-4 normal; 5-9 mild; 10-14 moderate; 15-21 severe): 0 Source: Developed by Drs. Jase Peter, Claudette Leonard, Steve Mcneil and colleagues, with an educational goran from [employer]. ACT Questionnaire In the past 4 weeks, how much of the time did your asthma keep you from getting as much done at work, school or at home?: Some of the time During the past 4 weeks, how often have you had shortness of breath?: 3-6 times a week During the past 4 weeks, how often did your asthma symptoms wake you up at night or earlier than usual in the morning?: Once or twice per week During the past 4 weeks, how often have you had to use your rescue inhaler or nebulizer medication?: 2-3 times a week How would you rate your asthma control during the past 4 weeks?: Well controlled Score: 17 Physical exam (Primary Care) Vital Signs: Last Vital Signs Temp 97.8 F 12/14/24 09:10 Pulse 68 12/14/24 09:10 Resp 16 12/14/24 09:10 BP 111/75 12/14/24 09:10 Pulse Ox 97 12/14/24 09:10 Oxygen Delivery Method Room Air 12/14/24 09:10 BMI result Body Mass Index 32.6 Tobacco/Smoking Status: Tobacco use Status Tobacco use date assessed 12/14/24 12/14/24 09:16 Patient Tobacco Use Status Never used Tobacco 12/14/24 09:16 PHQ-9: PHQ-9 Score PHQ-9: Total score 0 12/14/24 09:16 Thrive Assessment: Date of Thrive Assessment Date Thrive assessed 12/14/24 12/14/24 09:16 Currently or been in a relationship where the following occur: No concerns reported Coding Level of Care Code New Pt Level 4 (59678) Diagnoses Mild persistent asthma J45.30 Class 1 obesity E66.811 Recurrent sinusitis J32.9 Allergic rhinitis J30.9 Assessment & Plan Assessment & Plan (1) Mild persistent asthma: Code(s): J45.30 - Mild persistent asthma, uncomplicated (2) Class 1 obesity: Code(s): E66.811 - Obesity, class 1 Category: Medical (3) Recurrent sinusitis: Code(s): J32.9 - Chronic sinusitis, unspecified (4) Allergic rhinitis: Code(s): J30.9 - Allergic rhinitis, unspecified Plan Orders: Orders Comprehensive Met. Panel Today Z13.9 - Encounter for screening, unspecified Hemoglobin A1c Today Z13.9 - Encounter for screening, unspecified Hepatitis B Surface Antigen Today Z13.9 - Encounter for screening, unspecified Hepatitis C Antibody Today Z13.9 - Encounter for screening, unspecified Lipid Panel Today Z13.9 - Encounter for screening, unspecified Magnesium Today Z13.9 - Encounter for screening, unspecified Syphilis Screen Today Z13.9 - Encounter for screening, unspecified TSH reflex Free T4 Today Z13.9 - Encounter for screening, unspecified Vitamin D 1,25 dihydroxy Today Z13.9 - Encounter for screening, unspecified Complete Blood Count Auto Diff Today Z13.9 - Encounter for screening, unspecified Hepatitis B Surface Antibody Today Z13.9 - Encounter for screening, unspecified HIV Ab/Ag Today Z13.9 - Encounter for screening, unspecified Chlamydia Species Ab Panel Today Z13.9 - Encounter for screening, unspecified CT NG by PCR Urine Today Z13.9 - Encounter for screening, unspecified UA CC w/rflx Micro + Cult Today Z13.9 - Encounter for screening, unspecified Vitamin B12 and Folate Today Z13.9 - Encounter for screening, unspecified Referrals Nurse Navigator Referral E66.811 - Obesity, class 1 Medical Weight Management Referral E66.811 - Obesity, class 1 Medications: New albuterol sulfate 90 mcg/actuation (ProAir HFA) 2 puffs inhalation Q4-6H PRN 8.5 grams 0RF wheezing fluticasone propionate 110 mcg/actuation 2 puffs inhalation BID 12 grams 0RF cetirizine (Allergy Relief (cetirizine)) 10 mg PO DAILY 90 tabs 0RF montelukast 10 mg PO BEDTIME 90 tabs 0RF fluticasone propionate 50 mcg/actuation administer into each nostril 2 sprays intranasal DAILY 16 grams 0RF Discontinued albuterol sulfate 90 mcg/actuation Discontinued Reason: Doctor's Order 1 puff inhalation QID PRN 8.5 grams 0RF shortness of breath or wheezing
[2024-12-14 09:10] VITALS: BP 111/75; PULSE 68; RESP 16; TEMP 36.6; O2SAT 97; BMI 32.6
== END 2024-12-14 10:17 | disposition home or self-care (01) ==
LOC: HO.HMCFMS 09:02
PROVIDERS: PCP Student in an Organized Health Care Education/Training Program; Visit Provider Student in an Organized Health Care Education/Training Program
DX: J45.30 Mild persistent asthma, uncomplicated (principal); E66.811 Obesity, class 1; J32.9 Chronic sinusitis, unspecified; J30.9 Allergic rhinitis, unspecified

== ENCOUNTER → 2024-12-14 09:01 | Outpatient (BNVA) | payer OTHER, SELFPAY | PROVIDERS: Visit Provider Student in an Organized Health Care Education/Training Program | DX: J45.30 Mild persistent asthma, uncomplicated (principal); E66.811 Obesity, class 1; J32.9 Chronic sinusitis, unspecified; J30.9 Allergic rhinitis, unspecified | CPT/HCPCS: 96160; 99202 ==

== ENCOUNTER 2024-12-15 13:51 | Outpatient (REF) | payer OTHER, SELFPAY ==
[2024-12-15 18:07] LABS: MANUAL DIFF FLAG NO
[2024-12-15 18:36] LABS: Alanine Aminotransferase 17 U/L (0-31); Albumin Level 4.1 g/dL (3.5-5.0); Alkaline Phosphatase 61 U/L (39-117); Anion Gap 12 (12-20); Aspartate Amino Transferase 24 U/L (5-31); Blood Urea Nitrogen 11 mg/dL (9-16); Calcium 8.9 mg/dL (8.4-10.2); Carbon Dioxide 25 mmol/L (22-29); Chloride 107 mmol/L (96-108); Cholesterol 175 mg/dL (<200); Estimated Glomerular Filt Rate > 60; HDL Cholesterol 45 mg/dL (>40); Magnesium 1.9 mg/dL (1.6-2.6); Potassium 3.2 mmol/L (3.3-5.1); Sodium 141 mmol/L (135-145); Total Protein 7.1 g/dL (6.5-8.0); Triglycerides 105 mg/dL (<150)
[2024-12-15 18:37] LABS: Hematocrit 42.8 % (37.0-47.0); Hemoglobin 14.0 g/dl (12.0-16.0); Imm Gran Abs Auto 0.03 X10*3/uL (0.00-0.03); Imm Gran Pct Auto 0.3 % (0.0-0.4); Lymphocytes Absolute Auto 3.3 X10*3/uL (1.2-4.9); Mean Corpuscular HGB Conc 32.7 g/dl (31.0-35.0); Mean Corpuscular Hemoglobin 28.5 pg (27.0-33.0); Mean Corpuscular Volume 87.0 fL (80.0-98.0); NRBC Abs Auto 0.000 X10*3/uL (0.0-0.012); NRBC Pct Auto 0.0 /100WBC (0.0-0.2); Platelet Count 370 X10*3/uL (160-400); Red Blood Count 4.92 X10*6/uL (4.20-5.50); White Blood Count 9.6 X10*3/uL (4.8-10.8)
[2024-12-15 18:51] LABS: Appearance Urine Hazy; Glucose Urine UA Negative (Negative); PH 6.0 (5.0-9.0); Specific Gravity - Urine >= 1.030 (1.005-1.025)
[2024-12-15 19:04] LABS: Folate 6.6 ng/mL (> or = 4.0); Vitamin B12 311 pg/mL (200-900)
[2024-12-16 09:16] LABS: Syphilis Screen Nonreactive (Nonreactive)
[2024-12-16 10:43] LABS: HBsAGNum1 0.47 S/CO (0.00-0.99); HIV Num 1 0.06 S/CO (0.00-0.99); ~HepC Num1 0.14 S/CO (0.00-0.79); ~Hepatitis B Surface Antibody REACTIVE (Nonreactive); ~Hepatitis C Antibody Nonreactive (Nonreactive)
[2024-12-16 10:44] LABS: Hepatitis B Surface Antigen Negative (Negative)
[2024-12-16 12:36] LABS: CT PCR Urine NOT DETECTED (Not Detect.); NG PCR Urine NOT DETECTED (Not Detect.)
[2024-12-20 18:14] LABS: Chlamydia Trachomatis IgA <1:16 titer (<1:16)
[2024-12-21 01:29] LABS: VITAMIN D (1,25 OH) D3 41 pg/mL; Vit D (1,25-Dihydroxy) Total 41 pg/mL (18-72); Vitamin D (1,25 OH) D2 <8 pg/mL
== END 2024-12-15 13:52 | disposition home or self-care (01) ==
LOC: HO.HKASLDS 13:51
PROVIDERS: PCP Student in an Organized Health Care Education/Training Program; Visit Provider Student in an Organized Health Care Education/Training Program
DX: Z13.89 Encounter for screening for other disorder (principal); Z20.2 Contact with and (suspected) exposure to infections with a predominantly sexual mode of transmission; Z11.4 Encounter for screening for human immunodeficiency virus [HIV]; Z11.59 Encounter for screening for other viral diseases; Z11.3 Encounter for screening for infections with a predominantly sexual mode of transmission
CPT/HCPCS: 80053; 80061; 81003; 82607; 82652; 82746; 83036; 83735; 84443; 85025; 86631; 86632; 86706; 86780; 86803; 87340; 87389; 87491; 87591

== ENCOUNTER 2024-12-28 12:43 | Outpatient (AMB) | payer OTHER, SELFPAY ==
[2024-12-28 12:54] VITALS: BP 120/64; PULSE 83; RESP 16; TEMP 36.8; O2SAT 96; BMI 31.9
--- NOTE | 2024-12-28 12:54 | A.OFFPC_ITS ---
Vital Signs 12/28/24 12:54 Height 5 ft 3 in Weight 180 lb BMI 31.9 BP 120/64 Blood Pressure Location Rt brachial Position Sitting Respiration 16 Pulse 83 Pulse Source Pulse Oximeter Temp 98.2 F Temp Source Oral Pulse Oximetry (%) 96 Oxygen Delivery Method Room Air Intake Visit Reasons: 2 week follow up Nurse Gynecology Required: No Accompanied by: Self / Same As Patient Allergies procaine (From NOVOCAIN) Allergy (Mild, Verified 12/28/24 12:55) HIVES FROM DENTAL NOVOCAIN amoxicillin (AMOXICILLIN) Allergy (Unknown, Verified 12/28/24 12:55) HIVES Penicillins (PCN) Allergy (Unknown, Verified 12/28/24 12:55) HIVES polymyxin B Allergy (Verified 12/28/24 12:55) Hives fish Allergy (Unknown, Uncoded 06/22/23 08:29) anaphylaxis novacaine Allergy (Unknown, Uncoded 06/22/23 08:29) hives SHELLFISH Allergy (Unknown, Uncoded 06/22/23 08:29) HIVES shellfish Allergy (Unknown, Uncoded 06/22/23 08:29) anaphylaxis Medication List - Last Reconciled 12/28/24 by Memo Montes MD albuterol sulfate 90 mcg/actuation (Ventolin HFA) 2 puffs inhalation Q6H PRN cetirizine (Allergy Relief (cetirizine)) 10 mg PO DAILY fluticasone propionate 110 mcg/actuation 2 puffs inhalation BID fluticasone propionate 50 mcg/actuation 2 sprays intranasal DAILY montelukast 10 mg PO BEDTIME Tobacco use date assessed: 12/28/24 Dental Screening Dental Screen Date: 12/28/24 Did you have a dental visit in the last 12 months?: Yes Did you have a dental problem in the last 6 months where you did not have access to dental care?: No Was dental information given to patient?: Patient has dentist HPI HPI Comments History of Present Illness Details History of Present Illness The patient is a 29-year-old female presenting with complaints of fatigue, difficulty sleeping, and a headache. Sinus Headache: The patient reports a frontal headache that has been present for the past three days. She has been taking ibuprofen in the morning and at night for the pain. She also reports associated pain in her nose, suggesting a sinus etiology related to her allergies. Fatigue and Insomnia: The patient complains of being tired and having difficulty sleeping at night, even when avoiding her phone before bed. 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 Recent lab work showed a vitamin B12 level in the low-normal range at 300. Allergic Rhinitis: The patient has a known history of allergies to grass and pollen, confirmed by prior allergy testing. She was previously prescribed a nasal spray, which she feels has not been effective, admitting she may be using it incorrectly. Recent lab results showed elevated eosinophils, consistent with an allergic process. Obesity and Weight Management: The patient expresses a desire to lose weight. She saw a nurse navigator for obesity and was informed she did not qualify for surgery because she was considered healthy based on her lab results. She reports knee pain and tendinitis in her hands as barriers to exercise. Medications: - Ibuprofen: Taken in the morning and at night for headaches. - Nasal spray (unspecified): For allergi es. 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 - Housing: She reports a history of home lessness after giving to her children. - Family Status: The patient has a son a nd a daughter. - Family Background: Her mother is from [place] (of and [place] descent), and her father is Iranian. - Exercise: Reports having gone to the [facility] for months but is limited by knee pain and tendinitis in her hands. - Diet: Reports eating rice, beans, and chuletas. Diagnostic Results: - Complete Blood Count: White blood cell s, red blood cells, hemoglobin, hematocrit, and platelets are within normal limits. - Differential: Eosinophils are elevated . - Comprehensive Metabolic Panel: Potassi um is low at 3.2; sodium, chloride, renal function, calcium, magnesium, and liver function are normal. - Glucose: Random glucose and Hemoglobin A1c are normal. - Lipid Panel: LDL cholesterol is slight ly high at 109 mg/dL; triglycerides, total cholesterol, and HDL cholesterol are good. - Vitamins: Vitamin B12 is low at 300 pg /mL; Vitamin D and folate are good. - Thyroid Function: Normal. - Prior Allergy Testing: Positive for mu ltiple allergens, including grass and pollen. Past Medical History - Allergic rhinitis, with known allergie s to grass and pollen confirmed by prior testing. - Tendinitis of the hands. Health Maintenance - Weight management: Engaged with a nurs e navigator for obesity. - Healthy lifestyle: Advised to walk for 30 minutes daily at a moderate intensity and follow a nutritional plan. - Preventative screening: A review of re cent lab work was performed. [facility] Medical History (Updated 12/28/24 @ 22:11 by Memo Montes MD) Hyperlipidemia Hypokalemia Low vitamin B12 level Fatigue Allergic rhinitis Sinus headache Class 1 obesity Asthma Surgical History History of laparoscopic cholecystectomy (06/20/21) Hx of wisdom tooth extraction Family History Father Diabetes Mother High cholesterol Social History Housing: Apartment Alcohol intake: current Alcohol intake frequency: does not drink Patient Tobacco Use Status: Never used Tobacco service: No Current occupational status: employed Cognitive needs: No Hearing needs: No Vision needs: Yes (rx glasses) Questionnaire Thrive Questionnaire Date Thrive assessed: 12/14/24 I am a: Patient What is your living situation today?: I have a steady place to live Within the past 12 months, did the food you bought not last and you didn't have the money to get more?: Never true Within the past 12 months, did you worry whether your food would run out before you got money to buy more?: Never true Do you have trouble paying for medicines?: No Do you have trouble getting transportation to medical appointments?: No Do you have trouble paying your heating and electricity bill?: No Do you have trouble taking care of your child, family member or friend?: No Are you currently unemployed and looking for a job?: No Are you interested in more education?: No Please select the resources that you would like help with: None Currently or been in a relationship where the following occur: No concerns reported THRIVE Score: 0 Review of Systems Narrative Review of Systems - Constitutional: Reports fatigue. - Neurological: Reports a frontal headache for the past three days. - Sleep: Reports difficulty sleeping at night. - HEENT: Reports nasal pain. - Allergic: Reports known allergies to grass and pollen. - Musculoskeletal: Reports knee pain and hand pain, which she attributes to tendinitis. 10-point ROS reviewed and negative except as noted in HPI Physical exam (Primary Care) Vital Signs: Last Vital Signs Temp 98.2 F 12/28/24 12:54 Pulse 83 12/28/24 12:54 Resp 16 12/28/24 12:54 BP 120/64 12/28/24 12:54 Pulse Ox 96 12/28/24 12:54 Oxygen Delivery Method Room Air 12/28/24 12:54 BMI result Body Mass Index 31.9 Tobacco/Smoking Status: Tobacco use Status Tobacco use date assessed 12/28/24 12/28/24 13:06 Patient Tobacco Use Status Never used Tobacco 12/28/24 13:06 Thrive Assessment: Date of Thrive Assessment Date Thrive assessed 12/14/24 12/28/24 13:06 Currently or been in a relationship where the following occur: No concerns reported Narrative Physical Exam General: Well-appearing, in no acute distress, but reports fatigue and difficulty sleeping. Vital signs: Within normal limits. HEENT: Normocephalic, atraumatic. PERRLA, EOMI. Conjunctiva clear, sclera anicteric. Oropharynx clear, mucous membranes moist. TMs intact bilaterally. Reports frontal headache and nasal discomfort, possibly due to sinus issues. Neck: Supple, no lymphadenopathy, no thyromegaly, no JVD or carotid bruits. Cardiovascular: RRR, normal S1/S2, no murmurs, rubs, or gallops. Peripheral pulses 2+ and symmetric. No edema. Respiratory: Lungs clear to auscultation bilaterally, no wheezes, rales, or rhonchi. Normal effort. Abdomen: Soft, non-tender, non-distended. Normoactive bowel sounds. No hepatosplenomegaly, no masses. MSK: Full range of motion, no joint swelling or deformity. Reports knee pain and hand tendinitis. Skin: Warm, dry, intact. No rashes, lesions, or pallor. Neuro: Alert and oriented x3. Cranial nerves II-XII intact. Strength 5/5 throughout. Sensation intact. Reflexes 2+ symmetric. Normal coordination and gait. Psych: Appropriate mood and affect. Normal judgment and insight. Reports feeling tired and stressed due to work and personal circumstances. Coding Level of Care Code Est Pt Level 4 (98774) Diagnoses Sinus headache R51.9 Allergic rhinitis J30.9 Fatigue R53.83 Low vitamin B12 level E53.8 Hypokalemia E87.6 Hyperlipidemia E78.5 Class 1 obesity E66.811 Assessment & Plan Assessment & Plan (1) Sinus headache: Code(s): R51.9 - Headache, unspecified Category: Medical (2) Allergic rhinitis: Code(s): J30.9 - Allergic rhinitis, unspecified Category: Medical (3) Fatigue: Code(s): R53.83 - Other fatigue Category: Medical (4) Low vitamin B12 level: Code(s): E53.8 - Deficiency of other specified B group vitamins Category: Medical (5) Hypokalemia: Code(s): E87.6 - Hypokalemia Category: Medical (6) Hyperlipidemia: Code(s): E78.5 - Hyperlipidemia, unspecified Category: Medical (7) Class 1 obesity: Code(s): E66.811 - Obesity, class 1 Category: Medical Plan Consent Patient was informed and verbally consented to the use of an ambient scribe for clinic note documentation during this visit. Plan 1. Sinus Headache / Allergic Rhinitis - The patient's headache is likely secondary to poorly controlled allergies, as supported by her symptoms of nasal pain and elevated eosinophils on lab work. - Re-instructed on the proper use of her nasal spray: two sprays in each nostril, twice daily. Emphasized directing the spray straight up into the nose. 2. Fatigue / Vitamin B12 Deficiency - The patient's fatigue may be associated with her low-normal vitamin B12 level of 300. - Will prescribe an oral vitamin B12 supplement to be taken daily. 3. Hypokalemia - Mild hypokalemia was noted on recent labs with a potassium level of 3.2. - Advised to increase dietary potassium intake by eating bananas. 4. Obesity / Hyperlipidemia - The patient's LDL cholesterol is slightly elevated at 109 mg/dL. - Counseled the patient to begin an exercise regimen of walking for 30 minutes daily at a moderate intensity, gauging effort with the talk test. - Encouraged to continue working with the nurse navigator on a nutritional plan for weight management. Discussion Notes I reviewed the patient's recent lab results with her in detail. I explained that her frontal headache is likely related to her allergies, which is supported by the elevated eosinophils in her bloodwork. We discussed the proper technique for her nasal spray to improve its efficacy. I informed her that her fatigue may be related to her vitamin B12 level being on the low end of normal, and that I would be prescribing a daily supplement. I also addressed her slightly low potassium by advising her to eat more bananas and noted her LDL cholesterol is mildly elevated. We discussed that she does not qualify for bariatric surgery as she is otherwise healthy. I provided a plan for weight management focused on lifestyle changes, including starting a daily 30- minute walking routine and continuing to work with her nurse navigator on nutrition. I explained the 'talk test' as a method to ensure she is exercising at a moderate intensity. Patient Instructions - Use your nasal spray by administering two puffs straight up into each nostril, twice a day. - Take the vitamin B12 supplement every day as prescribed to help with your tiredness. - Eat more bananas to help with your low potassium levels. - Start a new exercise plan of walking for 30 minutes every day. You should be able to hold a conversation while walking. - Continue to work with your nutritional plan and follow up with the nurse navigator for weight management. Medical Decision Making The patient is a 29-year-old female presenting with fatigue, insomnia, and a three-day history of headache. The headache is frontal and associated with nasal pain, consistent with a sinus headache secondary to allergic rhinitis, which is supported by a history of allergies and recent lab findings of elevated eosinophils. The management plan involves re-educating the patient on the proper use of her prescribed nasal spray. The patient's complaint of fatigue is being investigated. Lab results revealed a low-normal vitamin B12 level of 300, which may be contributing to her symptoms. A daily oral vitamin B12 supplement has been prescribed as a low-risk intervention. Other potential causes of fatigue were ruled out by normal CBC, thyroid, and glucose/A1c results. Incidental lab findings include mild hypokalemia (3.2) and mildly elevated LDL cholesterol (109). The hypokalemia will be managed with dietary recommendations, and the hyperlipidemia will be addressed through the lifestyle modifications recommended for weight management, as pharmacotherapy is not indicated at this time. The patient expressed a desire for weight loss, and a plan consisting of daily moderate-intensity exercise and adherence to her nutritional plan was established, reinforcing the care she is receiving from the nurse navigator. Total time spent caring for the patient today was 30 minutes. This includes time spent before the visit reviewing the chart, time spent documenting, and time spent reviewing laboratory results, diagnostic imaging, medications, performing a medically necessary evaluation, counseling on diagnoses, care coordination. Medications: New mecobalamin (vitamin B12) 5,000 mcg orally; 90 tabs 0RF
== END 2024-12-28 13:24 | disposition home or self-care (01) ==
LOC: HO.HMCFMS 12:44
PROVIDERS: PCP Student in an Organized Health Care Education/Training Program; Visit Provider Student in an Organized Health Care Education/Training Program
DX: R51.9 Headache, unspecified (principal); J30.9 Allergic rhinitis, unspecified; R53.83 Other fatigue; E53.8 Deficiency of other specified B group vitamins; E87.6 Hypokalemia; E78.5 Hyperlipidemia, unspecified; E66.811 Obesity, class 1

== ENCOUNTER → 2024-12-28 12:43 | Outpatient (BNVA) | payer OTHER, SELFPAY | PROVIDERS: PCP Internal Medicine; Visit Provider Student in an Organized Health Care Education/Training Program | DX: R53.83 Other fatigue (principal); R51.9 Headache, unspecified; J30.9 Allergic rhinitis, unspecified; E53.8 Deficiency of other specified B group vitamins; E87.6 Hypokalemia; E78.5 Hyperlipidemia, unspecified; E66.811 Obesity, class 1 | CPT/HCPCS: 99212 ==

== ENCOUNTER 2025-02-15 14:25 | Outpatient (AMB) | payer OTHER, SELFPAY ==
[2025-02-15 14:33] VITALS: BP 106/67; PULSE 70; RESP 16; TEMP 36.8; O2SAT 100; BMI 32.9
--- NOTE | 2025-02-15 14:33 | AM.OFFWIN_ITS ---
Intake Vital Signs 02/15/25 14:33 Height 5 ft 2 in Weight 180 lb BMI 32.9 BP 106/67 Blood Pressure Location Lt brachial Position Sitting Respiration 16 Pulse 70 Pulse Source Pulse Oximeter Temp 98.2 F Temp Source Oral Pulse Oximetry (%) 100 Oxygen Delivery Method Room Air Intake Visit Reasons: EP - Nauseated, Chest Pain Intake Note: EP complains of nausea for the last three days and few second sharp chest pain yesterday. Patient Tobacco Use Status: Never used Tobacco Allergies procaine (From NOVOCAIN) Allergy (Mild, Verified 02/15/25 14:40) HIVES FROM DENTAL NOVOCAIN amoxicillin (AMOXICILLIN) Allergy (Unknown, Verified 02/15/25 14:40) HIVES Penicillins (PCN) Allergy (Unknown, Verified 02/15/25 14:40) HIVES polymyxin B Allergy (Verified 02/15/25 14:40) Hives fish Allergy (Unknown, Uncoded 02/15/25 14:40) anaphylaxis novacaine Allergy (Unknown, Uncoded 02/15/25 14:40) hives SHELLFISH Allergy (Unknown, Uncoded 02/15/25 14:40) HIVES shellfish Allergy (Unknown, Uncoded 02/15/25 14:40) anaphylaxis Do you need a note to return to daycare/school/sports/work: No HPI HPI Comments History of Present Illness Details History of Present Illness The patient is a 30 year old female with a past medical history of hyperlipidemia, allergic rhinitis, s/p cholecystectomy presenting with nausea and transient chest pain. - The patient reports experiencing inter mittent nausea for the past three days. - She has not vomited and denies diarrhe a, abdominal pain, fever, or symptoms being worse after eating. - The patient has not been eating much b ut has been drinking caffeinated coffee. - She denies any history of acid reflux or heartburn. - The patient experienced a single episo de of sharp chest pain yesterday, which lasted for a few seconds and then resolved. - The chest pain was followed by nausea and was accompanied by a headache that is now resolved. - She denies any personal or parental hi story of heart conditions. She denies any history of smoking. - The patient uses an inhaler and denies current shortness of breath. - She reports recent sexual activity. 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 - Denies URI symptoms - Reports anxiety may also be playing a role Review of Systems - Constitutional: Denies fevers or chill s - Gastrointestinal: Reports intermittent nausea for three days and lack of appetite. Denies vomiting, diarrhea, abdominal pain, melena, or blood in stool. Reports regular bowel movements. - Cardiovascular: Reports one episode of sharp, transient chest pain yesterday. Denies shortness of breath. - Respiratory: Denies runny nose, conges tion, or coughing. - Neurological: Reports a headache yeste rday which has resolved. 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 Physical Exam General Appearance: Normal appearance, well developed. No acute distress Head: Normocephalic, atraumatic Cardiac: RRR. No M/R/G Pulmonary: No respiratory distress. Speaking in full sentences Abdomen: Soft and nontender Musculoskeletal: Moving all extremities spontaneously and against gravity Mental Status: Alert and Oriented x 3 Psychiatric: Normal mood. Normal affect. [facility] Medical History (Updated 12/28/24 @ 22:11 by Memo Montes MD) Hyperlipidemia Hypokalemia Low vitamin B12 level Fatigue Allergic rhinitis Sinus headache Class 1 obesity Asthma Surgical History History of laparoscopic cholecystectomy (06/20/21) Hx of wisdom tooth extraction Family History Father Diabetes Mother High cholesterol Social History Housing: Apartment Alcohol intake: current Alcohol intake frequency: does not drink Patient Tobacco Use Status: Never used Tobacco service: No Current occupational status: employed Cognitive needs: No Hearing needs: No Vision needs: Yes (rx glasses) Physical Exam Vital Signs: Last Vital Signs Temp 98.2 F 02/15/25 14:33 Pulse 70 02/15/25 14:33 Resp 16 02/15/25 14:33 BP 106/67 02/15/25 14:33 Pulse Ox 100 02/15/25 14:33 Oxygen Delivery Method Room Air 02/15/25 14:33 BMI result Body Mass Index 32.9 Results AMB Test Urine AMB Test Urine Negative Last Edit by Ami Bledsoe MA on 02/15 15:21 Results Reviewed Results Reviewed: Laboratory Last Values Tst Clinic Negative 02/15/25 14:57 Assessment & Plan Assessment & Plan (1) Nausea: Code(s): R11.0 - Nausea Plan - Unclear etiology of patients nausea. She denies any fevers, vomiting, diarrhea, constipation, abdominal pain, melena, or blood in stool. - Due to one episode of sharp chest pain that lasted for a few seconds yesterday, EKG was performed. EKG shows normal sinus rhythm with sinus arrhythmia. No ST changes noted. - A urine test was performed and was negative - May be multifactorial, potentially related to dietary habits such as drinking coffee on an empty stomach and not eating regularly. - Anxiety is also a possible contributing factor - The plan includes a prescription for ondansetron (Zofran) to be used as needed for nausea. - The patient was counseled on lifestyle modifications including fluid intake with water, eating regular small meals throughout the day, and avoiding caffeine on an empty stomach. - She was advised to monitor the timing of her nausea in relation to meals and to follow up with her primary care physician if her symptoms persist. Patient was informed and verbally consented to the use of an ambient scribe for clinic note documentation during the visit. Orders: Orders AMB HCG Urine Test Today R11.0 - Nausea AMB EKG-In Office Today R11.0 - Nausea Medications: New ondansetron HCl 4 mg PO Q8H PRN 7 tabs 0RF nausea and vomiting Coding Level of Care Code Est Pt Level 3 (26417) Diagnoses Nausea R11.0
== END 2025-02-15 16:30 | disposition home or self-care (01) ==
LOC: HO.HMCWIS 14:25
PROVIDERS: PCP Student in an Organized Health Care Education/Training Program; Visit Provider Family Medicine
DX: R11.0 Nausea (principal)

== ENCOUNTER → 2025-02-15 14:25 | Outpatient (BNVA) | payer OTHER, SELFPAY | PROVIDERS: PCP Student in an Organized Health Care Education/Training Program; Visit Provider Family Medicine | DX: R11.0 Nausea (principal); E78.5 Hyperlipidemia, unspecified; Z79.51 Long term (current) use of inhaled steroids | CPT/HCPCS: 81025; 99212 ==